=== PATIENT | male | born 1950 | race Caucasian/White ===

== ENCOUNTER 2016-10-21 14:24 | Emergency (ER) | payer MEDICAID ==
[~2016-10-21] VITALS: Ht 180.3 cm; Wt 112.0 kg
[~2016-10-21 14:24] MED LIST: LORA-475 PO; OMEP20CA2 PO; PROZ20CA11 PO
[2016-10-21 14:31] VITALS: BP 136/92; PULSE 88; RESP 16; TEMP 97.8; O2SAT 92
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
[2016-11-24] MEDS ORDERED: OMEP40CA2 PO (10:51)
== END 2016-10-21 15:15 | disposition home or self-care (01) ==
LOC: PHEFT 14:24
DX: S99.911A Unspecified injury of right ankle, initial encounter (principal); I48.91 Unspecified atrial fibrillation; K21.9 Gastro-esophageal reflux disease without esophagitis; I10 Essential (primary) hypertension; M19.90 Unspecified osteoarthritis, unspecified site; V18.4XXA Pedal cycle driver injured in noncollision transport accident in traffic accident, initial encounter
CPT/HCPCS: 73610; 99283

== ENCOUNTER 2016-11-06 14:31 | Emergency (ER) | payer MEDICAID ==
[~2016-11-06] VITALS: Ht 180.3 cm; Wt 110.8 kg
[~2016-11-06 14:31] MED LIST changes: -OMEP20CA2 PO
[2016-11-06 14:52] VITALS: PULSE 88; RESP 16; TEMP 98.3; O2SAT 93
[2016-11-06 15:39] LABS: CHLORIDE 101 MEQ/L (98-107); POTASSIUM 4.3 MEQ/L (3.5-5.1); SODIUM (NA) 135 MEQ/L (136-145)
--- NOTE | 2016-11-06 15:41 | PD ---
HPI Chief Complaint: GI Complaint Time Seen by Provider: 14:55 Travel History International Travel<30 days: No Contact w/Intl Traveler<30days: No Traveled to known affect area: No History of Present Illness HPI This is a 66-year-old male who presents to the emergency department with an episode of rectal bleeding yesterday. He said he went to the toilet and wiped and he had bright red blood on his toilet paper. There is no blood mixed in his stool and he denies any dark stools. He denies any lightheadedness, dizziness or fatigue. He says he's had 2 bowel movements since then which have been normal. He denies any abdominal pain. He has an uncle who had colon cancer. He has never had a colonoscopy because he is afraid to be put to sleep. PFSH Past Medical History Hx Anticoagulant Therapy: No Arthritis: Yes Atrial Fibrillation: Yes Anxiety: Yes (PANIC ATTACKS) Depression: Yes Diabetes: No Diminished Hearing: Yes (RIGHT) GERD: Yes Headaches: Yes Hypertension: Yes Neurologic: Yes (CHRONIC NECK PAIN) Psychiatric: Yes (PANIC ATTACKS) Immunizations Current: Yes Past Surgical History Abdominal Surgery: Yes (HERNIA REPAIR left groin) Social History Alcohol Use: No Tobacco Use: No Substance Use: No Allergies-Medications (Allergen,Severity, Reaction): Coded Allergies: Penicillin (Verified Allergy, Unknown, UNKNOWN, 11/06/16) Reported Meds & Prescriptions Reported Meds & Active Scripts Active Reported Ativan (Lorazepam) 2 Mg Tab 2 Mg PO HS PRN Prozac (Fluoxetine HCl) 20 Mg Cap 20 Mg PO DAILY Review of Systems Except as stated in HPI: all other systems reviewed are Neg Physical Exam Narrative GENERAL:Well appearing, no acute distress SKIN: Focused skin assessment warm and dry. HEAD: Atraumatic. Normocephalic. EYES: Pupils equal and round. No injection or drainage. ENT: Moist mucous membranes NECK: Trachea midline. CARDIOVASCULAR: Regular rate and rhythm. No murmur appreciated. RESPIRATORY: Clear to auscultation. Breath sounds equal bilaterally. GASTROINTESTINAL: Abdomen soft, non-tender, nondistended. No evident hemorrhoids. No grossly bloody stool MUSCULOSKELETAL: No obvious deformities. NEUROLOGICAL: Awake and alert. No obvious cranial nerve deficits. Moving all extremities. PSYCHIATRIC: Appropriate mood and affect; insight and judgment normal. Data Data Last Documented VS Vital Signs Date Time Temp Pulse Resp B/P Pulse Ox O2 Delivery O2 Flow Rate FiO2 11/06/16 14:52 98.3 88 16 93 Orders Complete Blood Count With Diff (11/06/16 15:08) Comprehensive Metabolic Panel (11/06/16 15:08) Labs Laboratory Tests Test 11/06/16 15:18 White Blood Count 7.2 TH/MM3 Red Blood Count 5.13 MIL/MM3 Hemoglobin 15.6 GM/DL Hematocrit 45.9 % Mean Corpuscular Volume 89.5 FL Mean Corpuscular Hemoglobin 30.4 PG Mean Corpuscular Hemoglobin 33.9 % Concent Red Cell Distribution Width 12.7 % Platelet Count 215 TH/MM3 Mean Platelet Volume 9.8 FL Neutrophils (%) (Auto) 52.3 % Lymphocytes (%) (Auto) 30.7 % Monocytes (%) (Auto) 12.4 % Eosinophils (%) (Auto) 2.4 % Basophils (%) (Auto) 2.2 % Neutrophils # (Auto) 3.7 TH/MM3 Lymphocytes # (Auto) 2.2 TH/MM3 Monocytes # (Auto) 0.9 TH/MM3 Eosinophils # (Auto) 0.2 TH/MM3 Basophils # (Auto) 0.2 TH/MM3 CBC Comment DIFF FINAL Differential Comment Sodium Level 135 MEQ/L Potassium Level 4.3 MEQ/L Chloride Level 101 MEQ/L Carbon Dioxide Level 28.6 MEQ/L Anion Gap 5 MEQ/L Blood Urea Nitrogen 11 MG/DL Creatinine 0.96 MG/DL Estimat Glomerular Filtration 79 ML/MIN Rate Random Glucose 91 MG/DL Calcium Level 8.2 MG/DL Total Bilirubin 0.4 MG/DL Aspartate Amino Transf 43 U/L (AST/SGOT) Alanine Aminotransferase 43 U/L (ALT/SGPT) Alkaline Phosphatase 79 U/L Total Protein 7.4 GM/DL Albumin 3.4 GM/DL [facility] Medical Decision Making Medical Screen Exam Complete: Yes Emergency Medical Condition: Yes Differential Diagnosis External hemorrhoids, internal hemorrhoids, anal fissure, colon cancer, colitis Narrative Course This is a 66-year-old male who presents to the emergency department with an episode of bright red blood per rectum yesterday. He was placed on a monitor and an IV was established. Labs are obtained which were reassuring. Hemoccult did demonstrate Hemoccult-positive stool. I don't think he necessarily requires admission for colonoscopy but he does require urgent follow-up with gastroenterology. I explained this to him and he expressed understanding. He has a primary care physician who is following him for this. Diagnosis Primary Impression: Bright red blood per rectum Referrals: [facility] Patient Instructions: General Instructions Additional Instructions: If you develop lightheadedness, dizziness, increasing blood in your stools or abdominal pain return to the emergency department. It is very important that you follow-up with a padding machine operator as soon as possible for evaluation of your bleeding as you could have cancer. Med/Other Pt SpecificInfo: No Change to Meds Disposition: 01 DISCHARGE HOME Condition: Stable Jeanie Bland MD Nov 06, 2016 15:41
[2016-11-06 15:42] LABS: ANION GAP 5 MEQ/L (5-15); BICARBONATE 28.6 MEQ/L (21.0-32.0); BLOOD UREA NITROGEN 11 MG/DL (7-18)
[2016-11-06 15:45] LABS: ALT (GPT) 43 U/L (12-78)
[2016-11-06 15:46] LABS: AST (GOT) 43 U/L (15-37); GLOMERULAR FILTRATION RATE 79 ML/MIN (>89)
[2016-11-06 15:47] LABS: TOTAL BILIRUBIN ADULT 0.4 MG/DL (0.2-1.0)
[2016-11-06 15:48] LABS: ALKALINE PHOSPHATASE 79 U/L (45-117)
[2016-11-06 16:03] LABS: AUTOMATED NEUTROPHIL # 3.7 TH/MM3 (1.8-7.7); BASOPHIL # 0.2 TH/MM3 (0-0.2); BASOPHIL % 2.2 % (0.0-2.0); EOSINOPHIL # 0.2 TH/MM3 (0-0.4); EOSINOPHIL % 2.4 % (0.0-4.0); HEMATOCRIT 45.9 % (39.0-51.0); HEMO FLAGS DIFF FINAL; LYMPH % 30.7 % (9.0-44.0); LYMPHOCYTE # 2.2 TH/MM3 (1.0-4.8); MEAN CELL VOLUME 89.5 FL (80.0-100.0); MEAN CORPUSCULAR HEMOGLOBIN 30.4 PG (27.0-34.0); MEAN CORPUSCULAR HGB CONC 33.9 % (32.0-36.0); MONO % 12.4 % (0.0-8.0); NEUT % 52.3 % (16.0-70.0); PLATELET COUNT 215 TH/MM3 (150-450); RED BLOOD COUNT 5.13 MIL/MM3 (4.50-5.90); RED CELL DISTRIBUTION WIDTH 12.7 % (11.6-17.2); WHITE BLOOD COUNT 7.2 TH/MM3 (4.0-11.0)
[2016-11-24] MEDS ORDERED: OMEP40CA2 PO (10:51)
== END 2016-11-06 16:22 | disposition home or self-care (01) ==
LOC: PHED 14:31
DX: K62.5 Hemorrhage of anus and rectum (principal); I48.91 Unspecified atrial fibrillation; I10 Essential (primary) hypertension
CPT/HCPCS: 80053; 85025; 99283

== ENCOUNTER 2016-11-26 19:43 | Emergency (ER) | payer MEDICAID ==
[~2016-11-26] VITALS: Ht 180.3 cm; Wt 111.1 kg
[~2016-11-26 19:43] MED LIST changes: +OMEP40CA2 PO
[2016-11-26 19:54] VITALS: BP 139/89; PULSE 78; RESP 14; TEMP 98.4; O2SAT 95
[2016-11-26] MEDS ORDERED: TETANUS/DIPHTHERIA TOXOID ADULT 0.5 ML VIAL IM ONE (20:45)
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
== END 2016-11-26 21:16 | disposition home or self-care (01) ==
LOC: PHED 19:43 → PHEFT 21:16
DX: S80.811A Abrasion, right lower leg, initial encounter (principal); I10 Essential (primary) hypertension; H91.91 Unspecified hearing loss, right ear; Z23 Encounter for immunization; Z87.39 Personal history of other diseases of the musculoskeletal system and connective tissue; Z86.79 Personal history of other diseases of the circulatory system; Z86.59 Personal history of other mental and behavioral disorders; Z87.19 Personal history of other diseases of the digestive system; X58.XXXA Exposure to other specified factors, initial encounter
CPT/HCPCS: 90471; 90714

== ENCOUNTER 2017-04-10 11:53 | Emergency (ER) | payer MEDICAID, MEDICARE ==
[~2017-04-10] VITALS: Ht 182.9 cm; Wt 107.1 kg
[2017-04-10 12:01] VITALS: BP 136/90; PULSE 89; RESP 16; TEMP 98.9; O2SAT 95
[2017-04-10] MEDS ORDERED: METO25TA6 PO (12:51)
--- NOTE | 2017-04-10 12:52 | PD ---
HPI Chief Complaint: GI Complaint Time Seen by Provider: 12:27 Travel History International Travel<30 days: No Contact w/Intl Traveler<30days: No Traveled to known affect area: No History of Present Illness HPI This 67-year-old male says he been having pain in his rectum for several weeks. He says the pain is fairly constant. He is concerned that he might have hemorrhoids. He had a left inguinal hernia repaired by Dr. Valente jade on January. He says he been having pain in his rectum. He has noted some change in the caliber of his stool. He has had some blood in his stool also. Patient does not recall this but on November 06 of this year he was evaluated in the ER blood per rectum. She was encouraged to go for colonoscopy. He had an appointment with Dr. Gill, but apparently they did not get along and colonoscopy was not done. He has continued to have pain. He also gets some crampy left lower quadrant pain at times and he has some crampy pain throughout his abdomen. PFSH Past Medical History Hx Anticoagulant Therapy: No Arthritis: Yes Atrial Fibrillation: Yes Anxiety: Yes (PANIC ATTACKS) Depression: Yes Diabetes: No Diminished Hearing: Yes (RIGHT) GERD: Yes Headaches: Yes Hypertension: Yes Neurologic: Yes (CHRONIC NECK PAIN) Psychiatric: Yes (PANIC ATTACKS) Immunizations Current: Yes Past Surgical History Abdominal Surgery: Yes (HERNIA REPAIR left groin) Social History Alcohol Use: No Tobacco Use: No Substance Use: No Allergies-Medications (Allergen,Severity, Reaction): Coded Allergies: penicillin G (Unverified Allergy, Unknown, UNKNOWN, 04/10/17) Reported Meds & Prescriptions Reported Meds & Active Scripts Active Omeprazole 40 Mg Cap 40 Mg PO DAILY Reported Metoprolol Succinate ER 24 HR (Metoprolol Succinate) 25 Mg Tab 25 Mg PO DAILY Ativan (Lorazepam) 2 Mg Tab 2 Mg PO HS PRN Prozac (Fluoxetine HCl) 20 Mg Cap 20 Mg PO DAILY Review of Systems General / Constitutional: No: Fever, Chills Eyes: No: Diploplia, Blurred Vision HENT: No: Headaches, Vertigo Respiratory: No: Cough, Shortness of Breath Gastrointestinal: Positive: Abdominal Pain, No: Nausea, Vomiting, Constipation Genitourinary: No: Urgency, Frequency Musculoskeletal: No: Myalgias, Arthralgias Skin: No Rash Neurologic: No: Weakness, Dizziness Hematologic/Lymphatic: No: Easy Bruising Physical Exam Narrative GENERAL: Well-developed male SKIN: Focused skin assessment warm/dry. HEAD: Atraumatic. Normocephalic. EYES: Pupils equal and round. No scleral icterus. No injection or drainage. ENT: No nasal bleeding or discharge. Mucous membranes pink and moist. NECK: Trachea midline. No JVD. CARDIOVASCULAR: Regular rate and rhythm. No murmur appreciated. RESPIRATORY: No accessory muscle use. Clear to auscultation. Breath sounds equal bilaterally. GASTROINTESTINAL: Abdomen soft, non-tender, nondistended. Hepatic and splenic margins not palpable. No hernias are palpable. Bowel sounds are active. On rectal exam there are no masses felt. Stool is brown and guaiac positive MUSCULOSKELETAL: No obvious deformities. No clubbing. No cyanosis. No edema. NEUROLOGICAL: Awake and alert. No obvious cranial nerve deficits. Motor grossly within normal limits. Normal speech. PSYCHIATRIC: Appropriate mood and affect; insight and judgment normal. Data Data Last Documented VS Vital Signs Date Time Temp Pulse Resp B/P (MAP) Pulse Ox O2 Delivery O2 Flow Rate FiO2 04/10/17 13:59 81 16 149/72 (97) 97 Room Air 04/10/17 12:01 98.9 Orders Orders Complete Blood Count With Diff (04/10/17 12:47) Comprehensive Metabolic Panel (04/10/17 12:47) Ct Abd/Pel W/O Iv Contrast (04/10/17 12:57) Labs Laboratory Tests Test 04/10/17 13:00 White Blood Count 5.6 TH/MM3 Red Blood Count 5.12 MIL/MM3 Hemoglobin 15.1 GM/DL Hematocrit 45.6 % Mean Corpuscular Volume 89.1 FL Mean Corpuscular Hemoglobin 29.5 PG Mean Corpuscular Hemoglobin Concent 33.2 % Red Cell Distribution Width 13.0 % Platelet Count 223 TH/MM3 Mean Platelet Volume 8.8 FL Neutrophils (%) (Auto) 46.9 % Lymphocytes (%) (Auto) 35.0 % Monocytes (%) (Auto) 13.4 % Eosinophils (%) (Auto) 3.8 % Basophils (%) (Auto) 0.9 % Neutrophils # (Auto) 2.6 TH/MM3 Lymphocytes # (Auto) 2.0 TH/MM3 Monocytes # (Auto) 0.7 TH/MM3 Eosinophils # (Auto) 0.2 TH/MM3 Basophils # (Auto) 0.1 TH/MM3 CBC Comment DIFF FINAL Differential Comment Blood Urea Nitrogen 11 MG/DL Creatinine 0.86 MG/DL Random Glucose 102 MG/DL Total Protein 7.3 GM/DL Albumin 3.4 GM/DL Calcium Level 8.4 MG/DL Alkaline Phosphatase 78 U/L Aspartate Amino Transf (AST/SGOT) 35 U/L Alanine Aminotransferase (ALT/SGPT) 35 U/L Total Bilirubin 0.3 MG/DL Sodium Level 134 MEQ/L Potassium Level 4.1 MEQ/L Chloride Level 99 MEQ/L Carbon Dioxide Level 29.4 MEQ/L Anion Gap 6 MEQ/L Estimat Glomerular Filtration Rate 89 ML/MIN MDM Medical Decision Making Medical Screen Exam Complete: Yes Emergency Medical Condition: Yes Medical Record Reviewed: Yes Differential Diagnosis Differential includes hemorrhoids, rectal or colon cancer, anal fissure Narrative Course Digital exam is negative for pathology. I told the patient that he needs to have a colonoscopy done to determine the source of pain and bleeding. He had gone to Dr. Gill but never had a colonoscopy done. He is having other abdominal pain and I have ordered a CT scan to assess for etiologies of this pain. My plan was to do a CT scan with contrast but the patient refuses to take the IV contrast. He says he has a severe anxiety disorder and the flushed feeling would be very unpleasant for him. I have explained to him that the scan without contrast may not show things that would be apparent on the scan with contrast and he understands this. CT scan has been done. There is an area of consent from thickening; at the level of the rectosigmoid junction concerning for malignancy. Colonoscopy is warranted. Patient now advises me that he is set up with Dr. Dawkins for sigmoidoscopy on March 25. Diagnosis Primary Impression: Rectal bleeding Additional Impression: possible colon cancer Disposition: DISCHARGE HOME Condition: Stable Juan Leger MD Apr 10, 2017 12:52
[2017-04-10 13:09] LABS: AUTOMATED NEUTROPHIL # 2.6 TH/MM3 (1.8-7.7); BASOPHIL # 0.1 TH/MM3 (0-0.2); BASOPHIL % 0.9 % (0.0-2.0); EOSINOPHIL # 0.2 TH/MM3 (0-0.4); EOSINOPHIL % 3.8 % (0.0-4.0); HEMATOCRIT 45.6 % (39.0-51.0); HEMO FLAGS DIFF FINAL; MEAN CELL VOLUME 89.1 FL (80.0-100.0); MEAN CORPUSCULAR HEMOGLOBIN 29.5 PG (27.0-34.0); MEAN CORPUSCULAR HGB CONC 33.2 % (32.0-36.0); MONO % 13.4 % (0.0-8.0); NEUT % 46.9 % (16.0-70.0); PLATELET COUNT 223 TH/MM3 (150-450); RED BLOOD COUNT 5.12 MIL/MM3 (4.50-5.90); WHITE BLOOD COUNT 5.6 TH/MM3 (4.0-11.0)
[2017-04-10 13:19] LABS: CHLORIDE 99 MEQ/L (98-107); POTASSIUM 4.1 MEQ/L (3.5-5.1); SODIUM (NA) 134 MEQ/L (136-145)
[2017-04-10 13:23] LABS: ANION GAP 6 MEQ/L (5-15); BICARBONATE 29.4 MEQ/L (21.0-32.0); BLOOD UREA NITROGEN 11 MG/DL (7-18)
[2017-04-10 13:26] LABS: ALT (GPT) 35 U/L (12-78); AST (GOT) 35 U/L (15-37); GLOMERULAR FILTRATION RATE 89 ML/MIN (>89)
[2017-04-10 13:28] LABS: TOTAL BILIRUBIN ADULT 0.3 MG/DL (0.2-1.0)
[2017-04-10 13:29] LABS: ALKALINE PHOSPHATASE 78 U/L (45-117)
[2017-04-10 13:59] VITALS: BP 149/72; PULSE 81; RESP 16; O2SAT 97
--- NOTE | 2017-04-10 14:10 | RADRPT ---
EXAM DATE/TIME: 04/10/2017 13:12 [facility] COMPARISON: CT CERVICAL SPINE W/O CONTRAST, March 31, 2014, 22:04. INDICATIONS : Rectal pain. Blood in stool. ORAL CONTRAST: No oral contrast ingested. RADIATION DOSE: 20.93 CTDIvol (mGy) MEDICAL HISTORY : Hypertension. Gastroesophageal reflux disease. SURGICAL HISTORY : Inguinal hernia repair. ENCOUNTER: Initial ACUITY: 1 day PAIN SCALE: 5/10 LOCATION: pelvis TECHNIQUE: Volumetric scanning of the abdomen and pelvis was performed. Using automated exposure control and ad justment of the mA and/or kV according to patient size, radiation dose was kept as low as reasonably achievable to obtain optimal diagnostic quality images. DICOM format image data is available electro nically for review and comparison. FINDINGS: The limited portion of the lung base visualized is clear. There is elevation of the left hemidiaphrag m. Examination of the liver demonstrates 2 low attenuation lesions within the liver. Both within the rig ht lobe. The largest measures 6 mm. They're indeterminate by noncontrast imaging. The spleen, pancreas, adrenal glands and kidneys are intact. The abdominal aorta is normal in caliber. There is no free air or free fluid. There is no retroperito gertrude lymphadenopathy. Imaging through the pelvis demonstrates a focal area of concentric narrowing and thickening of the co daren at the rectosigmoid junction. This would be concerning for malignancy. Colonoscopy is warranted f or further assessment. No iliac or inguinal adenopathy is present. No free fluid is seen. There are degenerative changes throughout the lumbar spine. CONCLUSION: 1. There is an area of concentric thickening within the colon at the level the rectosigmoid junction concerning for malignancy. Colonoscopy is warranted for further assessment. 2. Elevation of the left hemidiaphragm. Paramjit Coello MD on April 10, 2017 at 13:24 Board Certified Radiologist. This report was verified electronically.
== END 2017-04-10 15:03 | disposition home or self-care (01) ==
LOC: PHED 11:53
DX: K62.5 Hemorrhage of anus and rectum (principal); K62.89 Other specified diseases of anus and rectum; R10.32 Left lower quadrant pain; I10 Essential (primary) hypertension; H91.91 Unspecified hearing loss, right ear; Z87.39 Personal history of other diseases of the musculoskeletal system and connective tissue; Z86.79 Personal history of other diseases of the circulatory system; Z86.59 Personal history of other mental and behavioral disorders; Z86.69 Personal history of other diseases of the nervous system and sense organs
CPT/HCPCS: 74176; 80053; 85025; 99284

== ENCOUNTER 2017-06-01 08:00 | Inpatient (IN) | payer MEDICARE, MEDICAID ==
[~2017-06-01] VITALS: Ht 180.3 cm; Wt 107.1 kg
[~2017-06-01 08:00] MED LIST changes: +METO1TAB42 PO
[2017-07-24] MEDS ORDERED: LIDOCAINE HCL 1% PF 5 ML SYRINGE OTHER ONE (12:00)
[2017-07-24] MEDS ORDERED: GLYCOPYRROLATE 1 MG/5 ML SYRINGE IV PUSH ONE (12:00)
[2017-07-24] MEDS ORDERED: DEXAMETHASONE SOD PHOS 4 MG/ML VIAL IV ONE (12:00)
[2017-07-24] MEDS ORDERED: PROPOFOL 200 MG/20 ML AMP IV ONE (12:00)
[2017-07-24] MEDS ORDERED: LACTATED RINGER'S 1000 ML INJ 2,000 ML IV ONE (12:00)
[2017-07-24] MEDS ORDERED: PHENYLEPH/NS 1000 MCG/10 ML SYR IV ONE (12:00)
[2017-07-24] MEDS ORDERED: NEOSTIGMINE 5 MG/5 ML SYRINGE IV PUSH ONE (12:00)
[2017-07-24] MEDS ORDERED: ONDANSETRON HCL 4 MG/2 ML VIAL IV ONE (12:00)
[2017-07-24] MEDS ORDERED: ROCURONIUM INJ 50 MG/5 ML SYRINGE IV PUSH ONE (12:00)
[2017-07-24] MEDS ORDERED: ePHEDrine/NS 25 MG/5 ML SYRINGE IV ONE (12:00)
[2017-07-24] MEDS ORDERED: POVIDONE IODINE 5% (ANTISEPSIS KIT) 4 APPLICATIONS EACH NARE PRN (12:30)
[2017-07-24] MEDS ORDERED: METOPROLOL TARTRATE 25 MG TAB PO PRN (12:30)
[2017-07-24] MEDS ORDERED: INSULIN HUMAN REGULAR 1,000 UNITS/10 ML VIAL SQ PRN (12:30)
[2017-07-24] MEDS ORDERED: SODIUM CHLORID 0.9% 500 ML IV PRN (12:30)
[2017-07-24] MEDS ORDERED: ALVIMOPAN 12 MG CAPSULE - On Call PO SCH (12:30)
[2017-07-24] MEDS ORDERED: LACTATED RINGER'S 1000 ML IV PRN (12:30)
[2017-07-24] MEDS ORDERED: CHLORHEXIDINE GLUCONATE 2 % 1 PACK (2 CLOTHS) TOPICAL PRN (12:30)
[2017-07-24] MEDS ORDERED: VANCOMYCIN 1000 MG/NS 250 ML ON-CALL IV SCH ×2 (12:45)
[2017-07-24] MEDS ORDERED: METRONIDAZOLE 500 MG/100 ML ISONTONIC SOLN IV SCH (12:45)
[2017-07-24] MEDS ORDERED: ACETAMINOPHEN 1000 MG/100 ML 100 ML IV ONE (13:17)
[2017-07-24] MEDS ORDERED: MIDAZOLAM HCL 2 MG/2 ML VIAL ONE (13:17)
[2017-07-24] MEDS ORDERED: HYDROmorphone HCL PF 2 MG/ML VIAL ONE (13:17)
[2017-07-24 13:48] LABS: AUTOMATED NEUTROPHIL # 3.8 TH/MM3 (1.8-7.7); BASOPHIL % 0.7 % (0.0-2.0); EOSINOPHIL # 0.1 TH/MM3 (0-0.4); EOSINOPHIL % 1.7 % (0.0-4.0); HEMOGLOBIN 15.1 GM/DL (13.0-17.0); LYMPHOCYTE # 1.7 TH/MM3 (1.0-4.8); MEAN CORPUSCULAR HEMOGLOBIN 30.6 PG (27.0-34.0); MEAN CORPUSCULAR HGB CONC 34.4 % (32.0-36.0); MEAN PLATELET VOLUME 9.2 FL (7.0-11.0); MONO % 11.7 % (0.0-8.0); MONOCYTE # 0.7 TH/MM3 (0-0.9); NEUT % 59.9 % (16.0-70.0); PLATELET COUNT 235 TH/MM3 (150-450); RED BLOOD COUNT 4.94 MIL/MM3 (4.50-5.90); RED CELL DISTRIBUTION WIDTH 13.8 % (11.6-17.2); WHITE BLOOD COUNT 6.3 TH/MM3 (4.0-11.0)
[2017-07-24 14:06] LABS: BICARBONATE 29.2 MEQ/L (21.0-32.0); CALCIUM 8.8 MG/DL (8.5-10.1); CREATININE 0.8 MG/DL (0.60-1.30)
[2017-07-24] MEDS ORDERED: BUPIVACAINE LIPOSOME PF 1.3% 20 ML VIAL ONE (14:51)
--- NOTE | 2017-07-24 16:14 | EKG ---
Date Performed: 07/24/2017 Time Performed: 12:34:35 PTAGE: 67 years EKG: Sinus rhythm BORDERLINE ECG PREVIOUS TRACING : 12/01/2014 12.57 Compared to prior tracing no significant change DOCTOR: Abel Dwyer Interpretating Date/Time 07/24/2017 16:13:48
[2017-07-24] MEDS ORDERED: MORPHINE SULFATE 2 MG/ML INJ IM PRN (17:15)
[2017-07-24] MEDS ORDERED: diphenhydrAMINE HCL 25 MG CAP PO PRN (17:15)
[2017-07-24] MEDS ORDERED: NALOXONE HCL 0.4 MG/ML AMP IV PUSH PRN (17:15)
[2017-07-24] MEDS ORDERED: ONDANSETRON HCL 4 MG/2 ML VIAL IV PUSH PRN (17:15)
[2017-07-24] MEDS ORDERED: Post-op Orders (for Pharmacy) XX ONE (17:15)
[2017-07-24] MEDS ORDERED: KETOROLAC TROMETHAMINE 30 MG/ML (IVP) VIAL IVP PRN (17:15)
[2017-07-24] MEDS ORDERED: BUPIVACAINE/EPINEPHRINE 0.25% PF 10 ML VIAL INFIL ONE (17:17)
--- NOTE | 2017-07-24 17:24 | HHI.PR ---
Immediate Post Op Note Procedure Date: Jul 24, 2017 Pre Op Diagnosis: sigmoid colon cancer Post Op Diagnosis: same Surgeon: Valente Naylor Engineering Operator(s): Hardik Del Toro Procedure: laparoscopic assisted low anterior resection Complications: none Specimen(s) removed: sigmoid colon cancer Estimated blood loss: 100 Anesthesia: General Drains: None Patient to: PACU Patient Condition: Good Valente Naylor MD Jul 24, 2017 17:24
[2017-07-24] MEDS ORDERED: DO NOT ADM ANY ANTICOAGULANT DRUGS PRN (17:36)
--- NOTE | 2017-07-24 19:32 | MP ---
cc: CARRIE AREVALO M.D., MARK W. M.D. DATE OF SURGERY 07/24/2017 PREOPERATIVE DIAGNOSIS Low sigmoid colon cancer. POSTOPERATIVE DIAGNOSIS Low sigmoid colon cancer. PROCEDURE Rigid sigmoidoscopy. SURGEON Dr. Carrie Arevalo CONSTRUCTION EQUIPMENT MECHANIC HELPER SURGEON Dr. Valente Naylor ANESTHESIA General INDICATION A 67-year-old gentleman with a low sigmoid cancer. Patient of Dr. Valente Naylor who is undergoing laparoscopic assisted sigmoid resection. Sigmoidoscopy was performed to prepare for and evaluate the anastomosis. INTRAOPERATIVE FINDINGS Successful low anterior resection with low anastomosis with no evidence of leak. Staple line intact without significant bleeding. DESCRIPTION OF PROCEDURE IN DETAIL During the operation please refer to Dr. Valente Naylor's operative report for details. After sigmoid resection preparation for the operation a digital rectal exam was performed. The end of the rigid sigmoidoscope was placed into the anus into the distal rectum. Under direct visualization gradual advancement to the staple line was performed. No mucosal abnormalities were identified and the staple line appeared intact. There was minimal blood within the rectum. The rigid sigmoidoscope was removed. A functional end-to-end anastomosis was preformed using the EEA stapler. Again, please refer to Dr. Valente Naylor's dictation for details. Following anastomosis the rigid sigmoidoscope was returned into the distal rectum through the anus and under direct visualization insufflation was performed while saline was in the pelvis. The colon proximal to the anastomosis was closed with Dr. Naylor's fingers and anastomosis tested for leak. There was no evidence of leak. The staple line was able be visualized about three-quarters of it was intact. There was minimal ooze. There had been about 10 mL of mucusy bloody fluid following the anastomosis which had been removed from the distal rectum. The distal rectum was desufflated by opening the end of the sigmoidoscope and using suction and the sigmoidoscope was withdrawn. There was no evidence of complications associated with rigid sigmoidoscopy. This portion of the procedure was completed successfully. MD ELHAM Brewster/MYRIAM /4:44 PM /6:56 PM
[2017-07-24] MEDS: LORazepam 2 MG TAB PO PRN (19:53)
[2017-07-24] MEDS: D5-NS + KCL 20 MEQ INJ 1,000 ML IV SCH (19:58)
--- NOTE | 2017-07-24 19:58 | MP ---
cc: LAURIE ALVARADO DATE OF SURGERY: 07/24/2017 PREOPERATIVE DIAGNOSIS: Low sigmoid near obstructing colon cancer. POSTOPERATIVE DIAGNOSIS: Low sigmoid near obstructing colon cancer. PROCEDURE PERFORMED: Laparoscopic assisted low anterior resection. SURGEON Laurie Alvarado MD. SURFACE MINER Hardik Del Toro MD. ANESTHESIA General endotracheal anesthesia COMPLICATIONS None. ESTIMATED BLOOD LOSS About 100 cc. IV FLUIDS Two liters lactated Ringer's. INDICATIONS FOR PROCEDURE Mr. Venegas is a pleasant 67-year-old gentleman with severe anxiety disorder who had a low sigmoid colon cancer identified due to changes in stool and rectal bleeding. He saw Dr. Paulo Monroy as well as myself on multiple occasions. The patient was fearful of anesthetic and, therefore, did not immediately agree to surgery. After extensive consultation with Dr. Monroy and myself, as well as Dr. Frazier, by anesthesia, the patient was finally convinced to undergo general anesthesia to have his colon resection. The risks and benefits of the procedure was discussed with him in detail and he was agreeable. DETAILS OF PROCEDURE The patient was identified, brought to the operating room table, placed supine on the operating room table. After adequate general endotracheal anesthesia was achieved, the abdomen was prepped and draped in standard surgical fashion. 0.25% Marcaine was injected in the skin and subcutaneous tissue and the infraumbilical region. A vertical incision was made approximately 8 cm in the infraumbilical region. Dissection was carried down through subcutaneous tissue, down to the anterior abdominal wall fascia. The anterior abdominal wall fascia was then incised sharply. Rectus muscles were then carefully dissected out, identifying the midline. Once the midline was identified, the rectus muscles were gently spread in order to visualize the posterior fascia and peritoneum. This was grasped, elevated and divided with the electrocautery Bovie. The abdominal cavity was then entered. The GelPort was then inserted and the abdomen was insufflated with 15 mmHg using CO2 gas. Next a 5 mm trocar was placed in the right lower quadrant. The patient was noted to have some adhesions in the right lower quadrant and, therefore, two 5 millimeter trocars were placed through the GelPort. The adhesions were taken down with the harmonic scalpel. Once this was freed up completely, attention was directed to the sigmoid colon. The patient was noted to have some adhesions in the sigmoid colon, the anterior abdominal wall, and lateral pelvic sidewall. These were carefully taken down with the harmonic scalpel. Once the colon was freed up, attention was directed to the descending colon where it was slightly mobilized off the abdominal wall, along the white line of Toldt using the harmonic scalpel. Once the colon was freed up completely, attention was now directed to the dissection. The lesion was identified in the sigmoid area in the lower area just above the peritoneal reflection. We, therefore, selected a site about 6-7 cm proximal to this. The mesentery was divided with the harmonic scalpel. Next the laparoscopic portion of the procedure was discontinued. The GelPort was then used as the access point with the GelPort acting as the wound retractor. The sigmoid colon was brought up into the operative wound. It was divided with a 75 DEMETRI at the site that we had selected which was a significant distance from the apple core lesion in the sigmoid colon. Attention was now directed to the mesentery of the sigmoid colon. The mesentery was taken down with the harmonic scalpel. A fairly large sigmoid artery and vein were identified during dissection. These were oversewn with a 2-0 vicryl. Dissection then proceeded down to the peritoneal reflection. The peritoneal reflection was then taken down circumferentially again using the harmonic scalpel. The lesion was clearly identified and a generous margin of tissue was taken circumferentially around the lesion. Once we got several centimeters below the lesion, we used a contour semicircular stapler to fire on the upper rectum which was at least probably 4 to 5 cm away from the primary lesion. Once we did this the specimen was passed off and sent to pathology with a suture placed on the proximal portion of the colon. Bleeding points on the pelvis were controlled with the electrocautery Bovie. The left ureter was identified and protected during the dissection. Attention was now directed to the sigmoid colon. The patient had a very redundant long sigmoid colon. We did not have to mobilize it at all to get it down to the pelvis which it laid under no tension whatsoever and was still extremely redundant. Sterile towels were then brought up on the operative field and the colon staple line was removed out of the proximal sigmoid colon. Next, EEA sizes were brought up. An empty sponge stick was used to slightly stretch the colon which was seen to be in some spasm. A 25 EEA sizer barely fit in the colon. We gently attempted the 29, but it was under significant tension. We felt it was too large for this diameter of the colon. As stated, we were able to get the 25 in with some lube and gentle traction. The colon was tight around it, even after we advanced it several centimeters away from the end. We felt that the patient's colon would only accept a 25 EEA. Therefore, a 25 EEA stapler was opened. The pursestring suture of 2-0 Prolene was used in the sigmoid colon prior to placement of the EEA anvil. The EEA anvil was then placed and the pursestring suture pulled up. There was good coverage of the colon all the way around the base of the anvil. Several epiploic appendages and some mesenteric fat were taken down in order to have good colon visualization circumferentially around the EEA staple line. Now attention was directed to the rectum where Dr. Del Toro performed a rigid sigmoidoscopy. Dr. Del Toro identified the staple line at approximately 12 cm. From above, a site was selected on the anterior rectum for the anastomosis. The EEA was then inserted and the spike pushed through the colon. Once the orange base of the spike was seen, the sigmoid colon was placed down in the pelvis for the proper orientation. The sigmoid colon went down the pelvis with no problem with a large amount of redundant sigmoid colon. The EEA was then tightened down and fired. The EEA was then removed. Dr. Del Toro confirmed that two donuts with the proximal donut a little thin on one side, but otherwise intact circumferentially. Next the descending colon was held closed with a finger and the pelvis was filled with saline. Dr. Del Toro then insufflated the rectum. There is no evidence of air bubble coming from the staple line. The descending colon distended up nicely. Dr. Del Toro applied several firm puffs of air and again no leakage was noted. Dr. Del Toro did note some liquid stool coming from the proximal colon. At this point, it was felt the anastomosis was solid. The colon was then evacuated, using the suction device. Rigid sigmoidoscope was then withdrawn. Please see Dr. Del Toro's operative note for the rigid sigmoidoscopy. At this point, the colon was again inspected and it went down to the pelvis with no tension. It was redundant, and there was multiple epiploic appendages which were placed into the pelvis with the colon in order to cover over the anastomosis. The abdominal cavity was then rinsed out with warm saline solution. The effluent was noted to be clear. The omentum was then brought down and placed over the small bowel. Attention was now directed to closure. Closure was accomplished using a two-layer technique. First the peritoneum and posterior fascia was closed with a looped PDS from above and below. Next the subcutaneous tissue and rectus muscle was copiously irrigated with normal saline solution and injected with additional local anesthetic. The anterior abdominal wall fascia was then closed with a #1 loop PDS again from above and below. The subcutaneous fat was then copiously irrigated with normal saline solution and then closed with the skin stapling device. The 5 millimeter port site in the right lower quadrant was also closed with the skin stapling device. The patient tolerated the procedure well, was awake and extubated, and brought to recovery in stable condition. MD JAYCOB Perez/EDDI /5:27 PM /7:31 PM KENROY
[2017-07-24 20:00] VITALS: BP 141/86; PULSE 103; RESP 20; TEMP 96.8; O2SAT 93
[2017-07-25] VITALS (7 sets, daily range): BP systolic 108–172; BP diastolic 70–103; PULSE 90–153; RESP 18–22; TEMP 97.4–101.3; O2SAT 93–96
[2017-07-25] MEDS: D5-NS + KCL 20 MEQ INJ 1,000 ML IV SCH ×2 (01:16→10:25)
[2017-07-25] MEDS ORDERED: LORazepam 1 MG TAB PO PRN (07:30)
--- NOTE | 2017-07-25 07:52 | HHI.PR ---
Subjective Subjective Notes very anxious. worried about BP, low grade fever. can't sleep, can't urinate Objective Vitals/I&O Vital Signs Date Time Temp Pulse Resp B/P (MAP) Pulse Ox O2 Delivery O2 Flow Rate FiO2 07/25/17 06:16 100.8 150 22 145/76 (99) 93 07/24/17 18:45 Nasal Cannula 3 Labs Laboratory Tests Test 07/24/17 12:45 White Blood Count 6.3 Red Blood Count 4.94 Hemoglobin 15.1 Hematocrit 44.0 Mean Corpuscular Volume 89.0 Mean Corpuscular Hemoglobin 30.6 Mean Corpuscular Hemoglobin Concent 34.4 Red Cell Distribution Width 13.8 Platelet Count 235 Mean Platelet Volume 9.2 Neutrophils (%) (Auto) 59.9 Lymphocytes (%) (Auto) 26.0 Monocytes (%) (Auto) 11.7 Eosinophils (%) (Auto) 1.7 Basophils (%) (Auto) 0.7 Neutrophils # (Auto) 3.8 Lymphocytes # (Auto) 1.7 Monocytes # (Auto) 0.7 Eosinophils # (Auto) 0.1 Basophils # (Auto) 0.0 CBC Comment DIFF FINAL Differential Comment Blood Urea Nitrogen 8 Creatinine 0.80 Random Glucose 111 Calcium Level 8.8 Sodium Level 135 Potassium Level 3.7 Chloride Level 99 Carbon Dioxide Level 29.2 Anion Gap 7 Estimat Glomerular Filtration Rate 97 Cardiovascular: Regular Lungs: Clear Abdomen: Non-distended, Post-op tenderness, BS normal Wound Wound : Wound Location: Abdomen Appearance: Clean & Dry Dressing: Dry A/P Assessment and Plan POD 1 LAR/Colectomy will increase ativan and ask psych to assist with management replace garza OOB clear liquids. FU labs today Valente Naylor MD Jul 25, 2017 07:52
[2017-07-25] MEDS ORDERED: ACETAMINOPHEN 325 MG TAB PO PRN (08:00)
[2017-07-25] MEDS ORDERED: ENALAPRILAT 1.25 MG/ML VIAL IV PUSH PRN (08:00)
[2017-07-25] MEDS ORDERED: ALVIMOPAN 12 MG CAPSULE PO SCH (09:00)
[2017-07-25 09:19] LABS: HEMATOCRIT 40.2 % (39.0-51.0); HEMOGLOBIN 13.5 GM/DL (13.0-17.0); LYMPH % 3.2 % (9.0-44.0); LYMPHOCYTE # 0.4 TH/MM3 (1.0-4.8); MEAN CELL VOLUME 89.7 FL (80.0-100.0); MEAN CORPUSCULAR HEMOGLOBIN 30.2 PG (27.0-34.0); MEAN CORPUSCULAR HGB CONC 33.6 % (32.0-36.0); MEAN PLATELET VOLUME 8.8 FL (7.0-11.0); MONO % 6.8 % (0.0-8.0); MONOCYTE # 0.8 TH/MM3 (0-0.9); PLATELET COUNT 186 TH/MM3 (150-450); RED BLOOD COUNT 4.48 MIL/MM3 (4.50-5.90); RED CELL DISTRIBUTION WIDTH 13.7 % (11.6-17.2); WHITE BLOOD COUNT 12.2 TH/MM3 (4.0-11.0)
[2017-07-25] MEDS: FLUoxetine HCL 20 MG CAP PO SCH (09:37)
[2017-07-25] MEDS: METOPROLOL SUCCINATE 25 MG EXTENDED RELEASE TAB PO SCH (09:37)
[2017-07-25] MEDS: ALVIMOPAN 12 MG CAPSULE - Post-op dosing PO SCH ×2 (09:38→20:37)
[2017-07-25] MEDS: TAMSULOSIN HCL 0.4 MG CAP PO SCH ×2 (09:38→20:36)
[2017-07-25] MEDS: PANTOPRAZOLE SOD 40 MG DELAYED RELEASE TAB PO SCH (09:38)
[2017-07-25 09:47] LABS: BICARBONATE 28.5 MEQ/L (21.0-32.0); CREATININE 1.16 MG/DL (0.60-1.30)
[2017-07-25 11:04] LABS: BACTERIA, URINE RARE /hpf; BILIRUBIN, URINE NEG (NEG); BLOOD, URINE MOD (NEG); GLUCOSE,URINE TRACE mg/dL (NEG); HYALINE CAST, URINE 12 /lpf (RARE); KETONE, URINE TRACE mg/dL (NEG); MUCUS URINE FEW /lpf (OCC); NITRITE,URINE NEG (NEG); PH, URINE 6.5 (5.0-8.5); SQUAMOUS EPITHELIAL CELL URINE <1 /hpf (0-5); URINE COLOR YELLOW (YELLW/STRAW); URINE LEUKOCYTE ESTERASE MOD (NEG)
--- NOTE | 2017-07-25 13:42 | PD.PSY.CON ---
Provisional Diagnosis Admission Date Jul 24, 2017 at 11:52 [place] I. Generalized anxiety disorder [place] II. Deferred History of Present Illness Service Psychiatry Consult Requested By Surgical team Reason for Consult Anxiety Primary Care Physician Zane Burrows MD HPI The patient is a 67-year-old man, domiciled in [facility] [place], , unemployed, with psychiatric history of anxiety and depression, 1 previous psychiatric hospitalization, no previous suicidal attempt, he is on Ativan 2 mg twice a day and Prozac 20 mg prescribed by PCP, was hospitalized due POD 1 LAR/ Colectomy. She didn't has been consulted to psychiatry due to anxiety. Chart reviewed. On psychiatric evaluation patient is calm, cooperative, talkative. Patient reports that he has a long history of anxiety that has been well treated with psychotropic regimen mentioned above. But, the patient reports that since he is hospitalized, with feeling of isolation, very afraid to , sleeping poorly at night, he has been very anxious. He reported that he has been at the point of having a panic attack. He denies depressive symptoms, he denies anhedonia, he denies hopelessness, he denies hepatitis is, he denies suicidal and homicidal ideation, he denies visual and auditory hallucinations. Patient is fully oriented, motivated to continue medical treatment. Oriented 3 , no fluctuation of consciousness. He denies the use of alcohol and illicit drugs. Review of Systems Psychiatric: COMPLAINS OF: Anxiety Except as stated in HPI: all other systems reviewed are Neg Past Family Social History Coded Allergies: penicillin G (Unverified Allergy, Unknown, UNKNOWN, 07/24/17) Active Scripts Omeprazole (Omeprazole) 40 Mg Cap, 40 MG PO DAILY, #30 CAP 6 Refills Prov:Keely Gonzalez MD 11/24/16 Reported Medications Metoprolol Succinate ER 24 HR (Metoprolol Succinate ER 24 HR) 25 Mg Tab, 25 MG PO DAILY, #30 TAB 0 Refills 04/10/17 Lorazepam (Ativan) 2 Mg Tab, 2 MG PO HS Y for ANXIETY AND/OR AGITATION, TAB 0 Refills 06/21/16 Fluoxetine (Prozac) 20 Mg Cap, 20 MG PO DAILY for Depression Control, CAP 1 Refill 06/21/16 Current Medications Medications (Trade) Dose Ordered Sig/Fredi Route Start Time Stop Time Status Last Admin (Entereg) 12 mg BID PO 07/25/17 09:00 07/31/17 21:01 07/25/17 09:38 Potassium Chloride/Dextrose/ Sod Cl 1,000 ml @ 75 mls/hr [id number] IV 07/24/17 17:15 07/25/17 10:25 (Toradol Inj) 15 mg Q6H PRN IVP 07/24/17 17:15 07/29/17 17:14 07/25/17 01:01 (Percocet 5-325 Mg) 1 tab Q4H PRN PO 07/24/17 17:15 (Percocet 5-325 Mg) 2 tab Q4H PRN PO 07/24/17 17:15 (Zofran Inj) 4 mg Q4H PRN IV PUSH 07/24/17 17:15 (Benadryl) 25 mg Q6H PRN PO 07/24/17 17:15 (Lovenox Inj) 40 mg Q24H SQ 07/25/17 16:00 (Narcan Inj) 0.4 mg UNSCH PRN IV PUSH 07/24/17 17:15 (Morphine Inj) 4 mg Q1H PRN IM 07/24/17 17:15 07/25/17 05:24 (PROzac) 20 mg DAILY PO 07/25/17 09:00 07/25/17 09:37 (Ativan) 2 mg HS PRN PO 07/24/17 17:30 07/24/17 19:53 (Toprol Xl) 25 mg DAILY PO 07/25/17 09:00 07/25/17 09:37 (Protonix) 40 mg DAILY PO 07/25/17 09:00 07/25/17 09:38 Miscellaneous Information ALL NURSING DEPARTME... UNSCH PRN .XX 07/24/17 17:36 07/25/17 17:35 (Tylenol) 650 mg Q4H PRN PO 07/25/17 08:00 07/25/17 09:39 (Ativan) 2 mg Q4H PRN PO 07/25/17 08:00 (Flomax) 0.4 mg Q12HR PO 07/25/17 09:00 07/25/17 09:38 (Vasotec Inj) 1.25 mg Q6H PRN IV PUSH 07/25/17 08:00 Levofloxacin/ Dextrose 150 ml @ 100 mls/hr Q24H IV 07/25/17 13:45 UNV Family Psych History He denies family psychiatric history Social History The patient was born and raised in [place], his , lives alone in [facility], Patient's Strengths (min. 2) Verbal communication Physical Exam No EPS, no stiffness, no withdrawal symptoms, no psychomotor agitation or retardation Vital Signs Vital Signs Date Time Temp Pulse Resp B/P (MAP) Pulse Ox O2 Delivery O2 Flow Rate FiO2 07/25/17 12:00 99.4 128 18 112/71 (85) 94 07/24/17 18:45 Nasal Cannula 3 I/O 07/25/17 07/25/17 07/26/17 08:00 16:00 00:00 Intake Total 2080 ml Output Total 0 ml Balance 2080 ml Lab Results Test 07/25/17 08:45 07/25/17 10:16 White Blood Count 12.2 TH/MM3 Red Blood Count 4.48 MIL/MM3 Hemoglobin 13.5 GM/DL Hematocrit 40.2 % Mean Corpuscular Volume 89.7 FL Mean Corpuscular Hemoglobin 30.2 PG Mean Corpuscular Hemoglobin Concent 33.6 % Red Cell Distribution Width 13.7 % Platelet Count 186 TH/MM3 Mean Platelet Volume 8.8 FL Neutrophils (%) (Auto) 90.0 % Lymphocytes (%) (Auto) 3.2 % Monocytes (%) (Auto) 6.8 % Eosinophils (%) (Auto) 0.0 % Basophils (%) (Auto) 0.0 % Neutrophils # (Auto) 11.0 TH/MM3 Lymphocytes # (Auto) 0.4 TH/MM3 Monocytes # (Auto) 0.8 TH/MM3 Eosinophils # (Auto) 0.0 TH/MM3 Basophils # (Auto) 0.0 TH/MM3 CBC Comment DIFF FINAL Differential Comment Blood Urea Nitrogen 14 MG/DL Creatinine 1.16 MG/DL Random Glucose 90 MG/DL Calcium Level 8.0 MG/DL Sodium Level 134 MEQ/L Potassium Level 3.7 MEQ/L Chloride Level 99 MEQ/L Carbon Dioxide Level 28.5 MEQ/L Anion Gap 7 MEQ/L Estimat Glomerular Filtration Rate 63 ML/MIN Urine Color YELLOW Urine Turbidity HAZY Urine pH 6.5 Urine Specific [place] 1.020 Urine Protein TRACE mg/dL Urine Glucose (UA) TRACE mg/dL Urine Ketones TRACE mg/dL Urine Occult Blood MOD Urine Nitrite NEG Urine Bilirubin NEG Urine Urobilinogen LESS THAN 2.0 MG/DL Urine Leukocyte Esterase MOD Urine RBC /hpf Urine WBC 27 /hpf Urine Squamous Epithelial Cells <1 /hpf Urine Bacteria RARE /hpf Urine Hyaline Casts 12 /lpf Urine Mucus FEW /lpf Microscopic Urinalysis Comment CATH-CULTURE IND Date/Time Source Procedure Growth Status 07/25/17 10:16 Urine Catheterized Urine Urine Culture Pending Received Mental Status Examination Appearance: Appropriate Consciousness: Alert Orientation: x4 Motor Activity: Normal gait Speech: Unremarkable Language: Adequate Fund of Knowledge: Adequate Attention and Concentration: Adequate Memory: Unremarkable Mood: Appropriate Affect: Appropriate Thought Process & Associations: Intact Thought Content: Appropriate Hallucination Type: None Delusion Type: None Suicidal Ideation: No Suicidal Plan: No Suicidal Intention: No Homicidal Ideation: No Homicidal Plan: No Homicidal Intention: No Insight: Adequate Judgment: Adequate Assessment & Plan Problem List: (1) Anxiety ICD Codes: F41.9 - Anxiety Status: Acute Assessment & Plan: Psychiatric evaluation patient reports increased anxiety as a result of current medical situation, and increased insomnia. He has not been taking his outpatient medication for anxiety and insomnia, Prozac 20 mg and Ativan 2 mg twice a day. He denies depressive symptoms, he denies psychosis and jovon. He denies suicidal and homicidal ideation, he denies visual and auditory hallucinations. Okay restarting Prozac 20 mg, Ativan 2 mg twice a day. He does not meet criteria for involuntary psychiatric admission. Brief supportive psychotherapy, I will follow-up. Assessment & Plan Estimated LOS: Nithin Gamez MD Jul 25, 2017 13:42
[2017-07-25] MEDS: oxyCODONE/ACETAMINOPHEN 5 MG/325 MG TAB PO PRN ×3 (14:15→20:43)
[2017-07-25] MEDS: LEVOFLOXACIN 750 MG PREMIX INJ 150 ML IV SCH (15:36)
[2017-07-25] MEDS: ENOXAPARIN SODIUM 40 MG/0.4 ML SYRINGE SQ SCH (16:15)
[2017-07-26] VITALS: BP 114/71; PULSE 111; PULSE 112; RESP 18; TEMP 100.4; O2SAT 94
[2017-07-26] MEDS: D5-NS + KCL 20 MEQ INJ 1,000 ML IV SCH (00:16)
[2017-07-26] MEDS: oxyCODONE/ACETAMINOPHEN 5 MG/325 MG TAB PO PRN ×5 (00:18→21:35)
[2017-07-26] MEDS: LORazepam 2 MG TAB PO SCH ×2 (01:14→21:35)
[2017-07-26] MEDS: LORazepam 2 MG TAB PO PRN ×2 (02:32→08:31)
[2017-07-26 05:17] VITALS: BP 100/68; PULSE 100; RESP 21; TEMP 96.9; O2SAT 94
[2017-07-26 08:00] VITALS: BP 137/84; PULSE 133; PULSE 136; RESP 20; TEMP 101; O2SAT 93
[2017-07-26] MEDS: ALVIMOPAN 12 MG CAPSULE - Post-op dosing PO SCH ×2 (08:29→21:33)
[2017-07-26] MEDS: TAMSULOSIN HCL 0.4 MG CAP PO SCH ×2 (08:31→21:33)
[2017-07-26] MEDS: FLUoxetine HCL 20 MG CAP PO SCH (08:31)
[2017-07-26] MEDS: METOPROLOL SUCCINATE 25 MG EXTENDED RELEASE TAB PO SCH (08:34)
[2017-07-26] MEDS: PANTOPRAZOLE SOD 40 MG DELAYED RELEASE TAB PO SCH (08:40)
--- NOTE | 2017-07-26 11:05 | HHI.PR ---
Subjective Subjective Notes feels ok. reports 2 BMs and flatus, tolerating po, fever again this am. Objective Vitals/I&O Vital Signs Date Time Temp Pulse Resp B/P (MAP) Pulse Ox O2 Delivery O2 Flow Rate FiO2 07/26/17 08:00 101.0 136 20 137/84 (101) 93 07/26/17 02:11 Nasal Cannula 2.00 Labs Date/Time Source Procedure Growth Status 07/25/17 10:16 Urine Catheterized Urine Urine Culture Pending Received Cardiovascular: Regular Lungs: Clear Abdomen: Non-distended, Post-op tenderness, BS normal Wound Wound : Wound Location: Abdomen Appearance: Clean & Dry Dressing: Dry A/P Assessment and Plan POD 2 LAR/Colectomy appreciate psych asst. pt reports less anxiety today DC garza OOB and ambulate with son Full liquids. FU labs today Urine Cx pending Valente Naylor MD Jul 26, 2017 11:05
[2017-07-26] MEDS: BENZOCAINE 6 MG/MENTHOL 10 MG LOZENGE BUCCAL PRN ×3 (11:42→21:35)
[2017-07-26 12:00] VITALS: BP 95/63; PULSE 113; PULSE 116; RESP 18; TEMP 99.4; O2SAT 92
[2017-07-26] MEDS: ENOXAPARIN SODIUM 40 MG/0.4 ML SYRINGE SQ SCH (14:16)
[2017-07-26] MEDS: LEVOFLOXACIN 750 MG PREMIX INJ 150 ML IV SCH (14:16)
[2017-07-26 15:30] LABS: AUTOMATED NEUTROPHIL # 13.5 TH/MM3 (1.8-7.7); BASOPHIL % 0.1 % (0.0-2.0); EOSINOPHIL % 0.1 % (0.0-4.0); HEMATOCRIT 34.8 % (39.0-51.0); HEMOGLOBIN 11.8 GM/DL (13.0-17.0); LYMPH % 3.7 % (9.0-44.0); LYMPHOCYTE # 0.6 TH/MM3 (1.0-4.8); MEAN CELL VOLUME 89.5 FL (80.0-100.0); MEAN CORPUSCULAR HEMOGLOBIN 30.2 PG (27.0-34.0); MEAN CORPUSCULAR HGB CONC 33.8 % (32.0-36.0); MEAN PLATELET VOLUME 9.1 FL (7.0-11.0); MONO % 5.2 % (0.0-8.0); MONOCYTE # 0.8 TH/MM3 (0-0.9); NEUT % 90.9 % (16.0-70.0); PLATELET COUNT 159 TH/MM3 (150-450); RED BLOOD COUNT 3.89 MIL/MM3 (4.50-5.90); RED CELL DISTRIBUTION WIDTH 13.9 % (11.6-17.2); WHITE BLOOD COUNT 14.8 TH/MM3 (4.0-11.0)
[2017-07-26 16:00] VITALS: BP 141/80; PULSE 127; RESP 19; TEMP 100.1; O2SAT 92
[2017-07-26] MEDS ORDERED: CALCIUM CARBONATE 500 MG CHEWABLE TAB CHEW PRN (17:15)
[2017-07-26 20:00] VITALS: BP 100/71; PULSE 108; PULSE 110; RESP 20; TEMP 98.8; O2SAT 93
[2017-07-27] VITALS: BP 108/77; PULSE 140; RESP 20; TEMP 99.1; O2SAT 93
[2017-07-27 01:49] VITALS: PULSE 107
[2017-07-27] MEDS: oxyCODONE/ACETAMINOPHEN 5 MG/325 MG TAB PO PRN ×2 (03:49→09:23)
[2017-07-27 04:00] VITALS: BP 149/84; PULSE 118; RESP 20; TEMP 97.6; O2SAT 93
[2017-07-27 08:00] VITALS: BP 129/80; PULSE 109; RESP 19; TEMP 98.9; O2SAT 92
[2017-07-27] MEDS ORDERED: LEVOFLOXACIN 500 MG TAB PO SCH (09:00)
[2017-07-27] MEDS: LORazepam 2 MG TAB PO PRN (09:15)
[2017-07-27] MEDS: BENZOCAINE 6 MG/MENTHOL 10 MG LOZENGE BUCCAL PRN (09:17)
[2017-07-27] MEDS: TAMSULOSIN HCL 0.4 MG CAP PO SCH (09:18)
[2017-07-27] MEDS: FLUoxetine HCL 20 MG CAP PO SCH (09:18)
[2017-07-27] MEDS: PANTOPRAZOLE SOD 40 MG DELAYED RELEASE TAB PO SCH (09:18)
[2017-07-27] MEDS: METOPROLOL SUCCINATE 25 MG EXTENDED RELEASE TAB PO SCH (09:18)
[2017-07-27] MEDS: ALVIMOPAN 12 MG CAPSULE - Post-op dosing PO SCH (09:18)
[2017-07-27 09:23] VITALS: PULSE 110
--- NOTE | 2017-07-27 09:35 | HHI.DS ---
Discharge Summary Admission Date Jul 24, 2017 at 11:52 Discharge Date: Jul 27, 2017 Admitting Diagnosis Brief History 67 year old male POD3 laparoscopic sigmoid colectomy CBC/BMP: 07/26/17 1455 07/25/17 0845 Significant Findings Laboratory Tests Test 07/24/17 12:45 07/25/17 08:45 07/25/17 10:16 07/26/17 14:55 Monocytes (%) (Auto) 11.7 % (0.0-8.0) Random Glucose 111 MG/DL (74-106) Sodium Level 135 MEQ/L (136-145) 134 MEQ/L (136-145) White Blood Count 12.2 TH/MM3 (4.0-11.0) 14.8 TH/MM3 (4.0-11.0) Red Blood Count 4.48 MIL/MM3 (4.50-5.90) 3.89 MIL/MM3 (4.50-5.90) Neutrophils (%) (Auto) 90.0 % (16.0-70.0) 90.9 % (16.0-70.0) Lymphocytes (%) (Auto) 3.2 % (9.0-44.0) 3.7 % (9.0-44.0) Neutrophils # (Auto) 11.0 TH/MM3 (1.8-7.7) 13.5 TH/MM3 (1.8-7.7) Lymphocytes # (Auto) 0.4 TH/MM3 (1.0-4.8) 0.6 TH/MM3 (1.0-4.8) Calcium Level 8.0 MG/DL (8.5-10.1) Estimat Glomerular Filtration Rate 63 ML/MIN (>89) Urine Turbidity HAZY (CLEAR) Urine Ketones TRACE mg/dL (NEG) Urine Occult Blood MOD (NEG) Urine Leukocyte Esterase MOD (NEG) Urine WBC 27 /hpf (0-5) Urine Bacteria RARE /hpf (NONE) Urine Mucus FEW /lpf (OCC) Hemoglobin 11.8 GM/DL (13.0-17.0) Hematocrit 34.8 % (39.0-51.0) PE at Discharge Alert and awake Cardio: RRR Resp: CTAB Abd: incision with mild serous drainage; deya; abdomen soft; minimal tenderness Hospital Course This is a 67-year-old male to the operating room for a laparoscopic sigmoid colectomy. The patient's diet was advanced as tolerated. The patient's pain was controlled using oral pain medications. The patient was able to easily independently. The patient will follow-up with Dr. Naylor on Sunday. Pt Condition on Discharge: Good Discharge Disposition: Discharge Home Discharge Instructions DIET: Follow Instructions for: As Tolerated, No Restrictions Activities you can perform: See Additionl Instruction Other Activity Instructions: Okay to shower; pat incision dry Avoid heavy pushing pulling or lifting Emily Jasso Jul 27, 2017 09:35
--- NOTE | 2017-07-27 13:25 | HHI.PYPN ---
Subjective Remarks The patient was seen today for psychiatric reevaluation. Patient was in the company of his 17 years old son. He agreed with his son permanence while interview. Patient reports being on pain. He had a rough sleep last night. Continues to be anxious, he reports difficulty moving and breathing due to the pain. Patient requests having more Ativan during the night, he says that he takes 3 mg every night for 27 years. He denies suicidal and homicidal ideation , he denies visual and auditory hallucinations. I explained to the patient that we have to be careful with sedating medication after surgery and when he is prescribed with medication for pain. He expresses understanding. He is oriented 3, logical, coherent and relevant Review of Systems Gastrointestinal: COMPLAINS OF: Abdominal pain Psychiatric: COMPLAINS OF: Anxiety Except as stated in HPI: all other systems reviewed are Neg Mental Status Examination Appearance: Appropriate Consciousness: Alert Orientation: x4 Motor Activity: Normal gait Speech: Unremarkable Language: Adequate Fund of Knowledge: Adequate Attention and Concentration: Adequate Memory: Unremarkable Mood: Appropriate Affect: Appropriate Thought Process & Associations: Intact Thought Content: Appropriate Hallucination Type: None Delusion Type: None Suicidal Ideation: No Suicidal Plan: No Suicidal Intention: No Homicidal Ideation: No Homicidal Plan: No Homicidal Intention: No Insight: Adequate Judgment: Adequate Results Labs Test 07/26/17 14:55 White Blood Count 14.8 TH/MM3 Red Blood Count 3.89 MIL/MM3 Hemoglobin 11.8 GM/DL Hematocrit 34.8 % Mean Corpuscular Volume 89.5 FL Mean Corpuscular Hemoglobin 30.2 PG Mean Corpuscular Hemoglobin Concent 33.8 % Red Cell Distribution Width 13.9 % Platelet Count 159 TH/MM3 Mean Platelet Volume 9.1 FL Neutrophils (%) (Auto) 90.9 % Lymphocytes (%) (Auto) 3.7 % Monocytes (%) (Auto) 5.2 % Eosinophils (%) (Auto) 0.1 % Basophils (%) (Auto) 0.1 % Neutrophils # (Auto) 13.5 TH/MM3 Lymphocytes # (Auto) 0.6 TH/MM3 Monocytes # (Auto) 0.8 TH/MM3 Eosinophils # (Auto) 0.0 TH/MM3 Basophils # (Auto) 0.0 TH/MM3 CBC Comment DIFF FINAL Differential Comment Date/Time Source Procedure Growth Status 07/25/17 10:16 Urine Catheterized Urine Urine Culture - Final NO GROWTH IN 48 HOURS. Complete Vitals/IOs Vital Signs Date Time Temp Pulse Resp B/P (MAP) Pulse Ox O2 Delivery O2 Flow Rate FiO2 07/27/17 09:23 110 07/27/17 08:00 98.9 19 129/80 (96) 92 07/26/17 11:25 Nasal Cannula 2.00 Intake and Output 07/27/17 07/27/17 07/28/17 08:00 16:00 00:00 Intake Total 610 ml Output Total 901 ml Balance -291 ml Assessment & Plan Problem List: (1) Anxiety ICD Codes: F41.9 - Anxiety Status: Acute Assessment & Plan: Continue current psychotropic regimen. Brief supportive psychotherapy. Assessment & Plan Estimated LOS: days Justification for Cont. Inpt. Patient does not meet criteria for involuntary psychiatric admission. Nithin Red MD Jul 27, 2017 13:25
== END 2017-07-27 11:38 | disposition home or self-care (01) | DRG 331 ==
LOC: HSDI 07-24 11:52 → N07B 07-24 19:11
PROVIDERS: ADMIT Surgery Trauma Surgery; ATTEND Surgery Trauma Surgery
PROC: 0DJD8ZZ Inspection of Lower Intestinal Tract, Via Natural or Artificial Opening Endoscopic (ICD-10-PCS; 2017-07-24)
PROC: 3E0T3BZ Introduction of Anesthetic Agent into Peripheral Nerves and Plexi, Percutaneous Approach (ICD-10-PCS; 2017-07-24)
PROC: 0DTN4ZZ Resection of Sigmoid Colon, Percutaneous Endoscopic Approach (ICD-10-PCS; principal; 2017-07-24 13:41)
PROC: 0T9B70Z Drainage of Bladder with Drainage Device, Via Natural or Artificial Opening (ICD-10-PCS; 2017-07-25)
DX: C18.7 Malignant neoplasm of sigmoid colon (principal); I48.91 Unspecified atrial fibrillation; F41.9 Anxiety disorder, unspecified; I10 Essential (primary) hypertension; R33.9 Retention of urine, unspecified; R50.9 Fever, unspecified; G47.00 Insomnia, unspecified; F32.9 Major depressive disorder, single episode, unspecified; Z88.0 Allergy status to penicillin
CPT/HCPCS: 80048; 81001; 85025; 86850; 86900; 86901; 87086; 88307; 88309; 93005; 94150; C9290; J0131; J1100; J1170; J1650; J1885; J1956; J2250; J2270; J2370; J2405; J2710; J3010; J3370; J3480; J7050; J7120

== ENCOUNTER 2017-08-11 18:32 | Emergency (ER) | payer MEDICARE, MEDICAID ==
[~2017-08-11] VITALS: Ht 177.8 cm; Wt 100.0 kg
[2017-08-11 18:36] VITALS: BP 167/89; PULSE 115; RESP 16; TEMP 99.3; O2SAT 94
[2017-08-11] MEDS ORDERED: CEPH-460 PO (19:22)
--- NOTE | 2017-08-11 19:24 | PD ---
HPI Chief Complaint: Skin Problem Time Seen by Provider: 19:13 Travel History International Travel<30 days: No Contact w/Intl Traveler<30days: No Traveled to known affect area: No History of Present Illness HPI The patient is a 67-year-old male that on the ninth of this month had a partial colon resection for colon cancer. This was done by Dr. Valente wallace. He has an appointment to see Valente wallace on Sunday, 4 days from today. He developed a small cellulitis and was given Keflex. The patient comes in today because he ran out of Keflex. The surgical incision is open and there is slight drainage. He has some mild local pain but he is reluctant to take his Lortabs for pain because they make him feel strange. He has had a low-grade fever at home, here his temperature is 99.3. He states he has been out of his Keflex for about 24 hours. PFSH Past Medical History Hx Anticoagulant Therapy: No Arthritis: Yes Atrial Fibrillation: Yes Autoimmune Disease: No Anxiety: Yes Depression: Yes Cardiovascular Problems: Yes (afib) Diabetes: No Diminished Hearing: Yes (RIGHT) Endocrine: No GERD: Yes Genitourinary: No Headaches: Yes Hiatal Hernia: Yes (hernia repair left groin) Hypertension: Yes Immune Disorder: No Musculoskeletal: Yes Neurologic: No Psychiatric: Yes (panic attacks) Reproductive: Yes Respiratory: Yes Immunizations Current: Yes Sleep Apnea: Yes Thyroid Disease: No Past Surgical History Abdominal Surgery: Yes (HERNIA REPAIR left groin) AICD: No Cardiac Surgery: No Endocrine Surgery: No Genitourinary Surgery: No Gynecologic Surgery: No Joint Replacement: No Pacemaker: No Thoracic Surgery: No Social History Alcohol Use: No Tobacco Use: No (NEVER) Substance Use: No Allergies-Medications (Allergen,Severity, Reaction): Coded Allergies: penicillin G (Unverified Allergy, Unknown, UNKNOWN, 07/24/17) Reported Meds & Prescriptions Reported Meds & Active Scripts Active Omeprazole 40 Mg Cap 40 Mg PO DAILY Reported Metoprolol Succinate ER 24 HR (Metoprolol Succinate) 25 Mg Tab 25 Mg PO DAILY Ativan (Lorazepam) 2 Mg Tab 2 Mg PO HS PRN Prozac (Fluoxetine HCl) 20 Mg Cap 20 Mg PO DAILY Review of Systems Except as stated in HPI: all other systems reviewed are Neg Physical Exam Narrative GENERAL: The patient is alert, oriented 3 and slight apparent distress with his abdominal discomfort. His pulse is 115 and blood pressure 167/89 with oximetry 94% but the rest the vital signs are normal. The temperature is 99.3. SKIN: Focused skin assessment warm/dry. There is a small area of cellulitis surrounding the incision about 3 cm from the incision on both sides. There is slight tenderness around this HEAD: Atraumatic. Normocephalic. EYES: Pupils equal and round. No scleral icterus. No injection or drainage. ENT: No nasal bleeding or discharge. Mucous membranes pink and moist. NECK: Trachea midline. No JVD. CARDIOVASCULAR: Regular rate and rhythm. No murmur appreciated. RESPIRATORY: No accessory muscle use. Clear to auscultation. Breath sounds equal bilaterally. GASTROINTESTINAL: Abdomen soft, with minimal discomfort to direct palpation, nondistended. Hepatic and splenic margins not palpable. No guarding or rebound is present. No deep tenderness appears to be present. No foul smell to the wound is present. MUSCULOSKELETAL: No obvious deformities. No clubbing. No cyanosis. No edema. NEUROLOGICAL: Awake and alert. No obvious cranial nerve deficits. Motor grossly within normal limits. Normal speech. PSYCHIATRIC: Appropriate mood and affect; insight and judgment normal. Data Data Last Documented VS Vital Signs Date Time Temp Pulse Resp B/P (MAP) Pulse Ox O2 Delivery O2 Flow Rate FiO2 08/11/17 18:36 99.3 115 16 167/89 (115) 94 MDM Medical Decision Making Medical Screen Exam Complete: Yes Emergency Medical Condition: Yes Medical Record Reviewed: Yes Differential Diagnosis Cellulitis, deep wound infection-unlikely, intra-abdominal abscess-unlikely Narrative Course The patient appears to have a cellulitis. Have his Keflex refilled and follow- up on Sunday as scheduled with Dr. wallace. All the tenderness is around the skin area and there appears to be no deep tenderness present. Diagnosis Primary Impression: Cellulitis of abdominal wall Additional Instructions: Follow-up with Dr. wallace on Sunday as scheduled. The Keflex is one tablet every 6 hours as before. Med/Other Pt SpecificInfo: Prescription(s) given Scripts Cephalexin (Keflex) 500 Mg Capsule 500 MG PO Q6H for Infection, #30 CAP 0 Refills Prov: Nick Horan MD 08/11/17 Disposition: DISCHARGE HOME Condition: Stable Nick Horan MD Aug 11, 2017 19:24
[2017-08-11] MEDS ORDERED: CEPHALEXIN MONOHYDRATE 500 MG CAP PO ONE (19:30)
[2017-08-11] MEDS ORDERED: HYDR-3580 PO (19:56)
== END 2017-08-11 19:59 | disposition home or self-care (01) ==
LOC: PHED 18:32
DX: L03.311 Cellulitis of abdominal wall (principal); C18.9 Malignant neoplasm of colon, unspecified; I48.91 Unspecified atrial fibrillation; F32.9 Major depressive disorder, single episode, unspecified; K21.9 Gastro-esophageal reflux disease without esophagitis; I10 Essential (primary) hypertension; Z90.49 Acquired absence of other specified parts of digestive tract
CPT/HCPCS: 99281

== ENCOUNTER 2017-08-13 18:00 | Emergency (ER) | payer MEDICARE, MEDICAID ==
[~2017-08-13] VITALS: Ht 177.8 cm; Wt 102.5 kg
[~2017-08-13 18:00] MED LIST changes: +CEPH-460 PO; +HYDR-3580 PO
[2017-08-13 18:22] VITALS: BP 130/70; PULSE 89; RESP 16; TEMP 98.6; O2SAT 95
[2017-08-13] MEDS ORDERED: HYDR-3580 PO (19:15)
--- NOTE | 2017-08-13 19:19 | PD ---
HPI Chief Complaint: Medication Refill Request Time Seen by Provider: 19:09 Travel History International Travel<30 days: No Contact w/Intl Traveler<30days: No Traveled to known affect area: No History of Present Illness HPI 67-year-old male who underwent recent laparoscopic sigmoid colectomy in early July, surgeon Dr. Naylor, subsequently developed postoperative skin infection , on Keflex, presents requesting medication refill. He has been taking Lortab 7.5-325 every 4 as needed for pain, primarily at night. He ran out today and the pain is particularly bad at night. He is requesting enough medication to last until tomorrow. He has an appointment with a surgeon tomorrow. He denies any acute abdominal pain. He denies any fevers or chills. He has no other complaints at this time. PFSH Past Medical History Hx Anticoagulant Therapy: No Arthritis: Yes Atrial Fibrillation: Yes Autoimmune Disease: No Anxiety: Yes Depression: Yes Cardiovascular Problems: Yes Diabetes: No Diminished Hearing: Yes (RIGHT) Endocrine: No Gastrointestinal Disorders: Yes GERD: Yes Genitourinary: No Headaches: Yes Hiatal Hernia: Yes Hypertension: Yes Immune Disorder: No Musculoskeletal: Yes Neurologic: No Psychiatric: Yes Reproductive: Yes Respiratory: Yes Immunizations Current: Yes Sleep Apnea: Yes Thyroid Disease: No Past Surgical History Abdominal Surgery: Yes (HERNIA REPAIR, COLON RESECTION 07/22/17) AICD: No Cardiac Surgery: No Endocrine Surgery: No Genitourinary Surgery: No Gynecologic Surgery: No Joint Replacement: No Pacemaker: No Thoracic Surgery: No Other Surgery: Yes Social History Alcohol Use: No Tobacco Use: No (NEVER) Substance Use: No Allergies-Medications (Allergen,Severity, Reaction): Coded Allergies: penicillin G (Unverified Allergy, Unknown, UNKNOWN, 08/13/17) Reported Meds & Prescriptions Reported Meds & Active Scripts Active Hydrocodone-Acetaminophen 7.5 Mg-325 Mg Tab 1 Tab PO Q4H PRN Keflex (Cephalexin) 500 Mg Capsule 500 Mg PO Q6H Omeprazole 40 Mg Cap 40 Mg PO DAILY Reported Hydrocodone-Acetaminophen 7.5 Mg-325 Mg Tab 1 Tab PO Q4H PRN Metoprolol Succinate ER 24 HR (Metoprolol Succinate) 25 Mg Tab 25 Mg PO DAILY Ativan (Lorazepam) 2 Mg Tab 2 Mg PO HS PRN Prozac (Fluoxetine HCl) 20 Mg Cap 20 Mg PO DAILY Review of Systems Except as stated in HPI: all other systems reviewed are Neg Physical Exam Narrative GENERAL: Well-developed well-nourished male in no acute distress SKIN: Warm and dry. Dressing in place on the lower abdominal wall. HEAD: Atraumatic. Normocephalic. EYES: Pupils equal and round. No scleral icterus. No injection or drainage. ENT: No nasal bleeding or discharge. Mucous membranes pink and moist. NECK: Trachea midline. No JVD. CARDIOVASCULAR: Regular rate and rhythm. No murmur appreciated. RESPIRATORY: No accessory muscle use. Clear to auscultation. Breath sounds equal bilaterally. GASTROINTESTINAL: Abdomen soft, non-tender, nondistended. Hepatic and splenic margins not palpable. MUSCULOSKELETAL: No obvious deformities. No clubbing. No cyanosis. No edema. NEUROLOGICAL: Awake and alert. No obvious cranial nerve deficits. Motor grossly within normal limits. Normal speech. PSYCHIATRIC: Appropriate mood and affect; insight and judgment normal. Data Data Last Documented VS Vital Signs Date Time Temp Pulse Resp B/P (MAP) Pulse Ox O2 Delivery O2 Flow Rate FiO2 08/13/17 18:22 98.6 89 16 130/70 (90) 95 Orders Orders Ed Discharge Order (08/13/17 19:16) [facility] Medical Decision Making Medical Screen Exam Complete: Yes Emergency Medical Condition: Yes Medical Record Reviewed: Yes Differential Diagnosis Medication refill, wound dehiscence, infected wound, seroma, abscess Narrative Course The patient will be given a short refill of his Lortab. Diagnosis Primary Impression: Medication refill Additional Instructions: Follow-up tomorrow with Dr. Naylor as scheduled. Return for any emergent medical conditions. Med/Other Pt SpecificInfo: Prescription(s) given Scripts Hydrocodone-Acetaminophen (Hydrocodone-Acetaminophen) 7.5 Mg-325 Mg Tab 1 TAB PO Q4H Y for PAIN, #15 TAB 0 Refills Prov: Nick Horan MD 08/13/17 Disposition: 01 DISCHARGE HOME Condition: Stable Carmelo Page Aug 13, 2017 19:19
== END 2017-08-13 19:22 | disposition home or self-care (01) ==
LOC: PHED 18:00 → PHEFT 19:22
DX: Z76.0 Encounter for issue of repeat prescription (principal); I10 Essential (primary) hypertension; I48.91 Unspecified atrial fibrillation; F32.9 Major depressive disorder, single episode, unspecified; K21.9 Gastro-esophageal reflux disease without esophagitis; Z98.890 Other specified postprocedural states; Z88.0 Allergy status to penicillin; Z79.899 Other long term (current) drug therapy
CPT/HCPCS: 99281

== ENCOUNTER 2017-08-15 19:15 | Emergency (ER) | payer MEDICARE, MEDICAID ==
[2017-08-15 19:54] VITALS: BP 157/83; PULSE 94; RESP 20; TEMP 98.8
[2017-08-15] MEDS ORDERED: PERC7.5T13 PO (21:13)
--- NOTE | 2017-08-15 21:13 | PD ---
HPI Chief Complaint: Medication Refill Request Time Seen by Provider: 21:06 Travel History International Travel<30 days: No Contact w/Intl Traveler<30days: No Traveled to known affect area: No History of Present Illness HPI The patient is a 67-year-old male that has a slightly infected surgical site and is on Keflex for this. He follows up with his surgeon tomorrow. He comes in because he needs a refill on his hydrocodone 7.5 mg tablets. He was given 15 several days ago but he already used these up. PFSH Past Medical History Hx Anticoagulant Therapy: No Arthritis: Yes Atrial Fibrillation: Yes Autoimmune Disease: No Anxiety: Yes Depression: Yes Cardiovascular Problems: Yes Diabetes: No Diminished Hearing: Yes (RIGHT) Endocrine: No Gastrointestinal Disorders: Yes GERD: Yes Genitourinary: No Headaches: Yes Hiatal Hernia: Yes Hypertension: Yes Immune Disorder: No Musculoskeletal: Yes Neurologic: No Psychiatric: Yes Reproductive: Yes Respiratory: Yes Immunizations Current: Yes Sleep Apnea: Yes Thyroid Disease: No Tetanus Vaccination: < 5 Years Past Surgical History Abdominal Surgery: Yes (HERNIA REPAIR, COLON RESECTION 07/22/17) AICD: No Cardiac Surgery: No Endocrine Surgery: No Genitourinary Surgery: No Gynecologic Surgery: No Joint Replacement: No Pacemaker: No Thoracic Surgery: No Other Surgery: Yes Social History Alcohol Use: No Tobacco Use: No Substance Use: No Allergies-Medications (Allergen,Severity, Reaction): Coded Allergies: penicillin G (Unverified Allergy, Unknown, UNKNOWN, 08/15/17) Reported Meds & Prescriptions Reported Meds & Active Scripts Active Hydrocodone-Acetaminophen 7.5 Mg-325 Mg Tab 1 Tab PO Q4H PRN Keflex (Cephalexin) 500 Mg Capsule 500 Mg PO Q6H Omeprazole 40 Mg Cap 40 Mg PO DAILY Reported Metoprolol Succinate ER 24 HR (Metoprolol Succinate) 25 Mg Tab 25 Mg PO DAILY Ativan (Lorazepam) 2 Mg Tab 2 Mg PO HS PRN Prozac (Fluoxetine HCl) 20 Mg Cap 20 Mg PO DAILY Review of Systems Except as stated in HPI: all other systems reviewed are Neg Physical Exam Narrative GENERAL: Well-nourished, well-developed patient in slight apparent distress with his suprapubic discomfort. His vital signs show blood pressure 157/83 but are otherwise normal. SKIN: Focused skin assessment warm/dry. There is a slight cellulitis about 10 cm in diameter around the suprapubic catheter. This is slightly tender. No pus is present. HEAD: Normocephalic. EYES: No scleral icterus. No injection or drainage. NECK: Supple, trachea midline. No JVD or lymphadenopathy. CARDIOVASCULAR: Regular rate and rhythm without murmurs, gallops, or rubs. RESPIRATORY: Breath sounds equal bilaterally. No accessory muscle use. GASTROINTESTINAL: Abdomen soft, non-tender, nondistended. MUSCULOSKELETAL: No cyanosis, or edema. BACK: Nontender without obvious deformity. No CVA tenderness. Data Data Last Documented VS Vital Signs Date Time Temp Pulse Resp B/P (MAP) Pulse Ox O2 Delivery O2 Flow Rate FiO2 08/15/17 19:54 98.8 94 20 157/83 (107) MDM Medical Decision Making Medical Screen Exam Complete: Yes Emergency Medical Condition: Yes Medical Record Reviewed: Yes Differential Diagnosis Wound infection, drug seeking behavior-unlikely, cellulitis Narrative Course The patient has cellulitis around the suprapubic incision. This is not getting any worse but the patient does need some pain medication. He will be given 15 of the Percocet 7.5. Diagnosis Primary Impression: Wound infection after surgery Additional Impression: Cellulitis Additional Instructions: Do not miss your appointment with a surgeon tomorrow. Do not drink alcohol or drive on the Percocet 7.5. Continue the antibiotic. Med/Other Pt SpecificInfo: Prescription(s) given Scripts Oxycodone-Acetaminophen (Percocet) 7.5-325 mg Tab 1 TAB PO Q4H Y for PAIN, #15 TAB 0 Refills Prov: Nick Horan MD 08/15/17 Disposition: 01 DISCHARGE HOME Condition: Stable Nick Horan MD Aug 15, 2017 21:13
[2017-08-15] MEDS ORDERED: oxyCODONE/ACETAMINOPHEN 7.5 MG/325 MG TAB PO ONE (21:15)
== END 2017-08-15 21:32 | disposition home or self-care (01) ==
LOC: PHED 19:15 → PHEFT 21:32
DX: T81.4XXA Infection following a procedure, initial encounter (principal); I10 Essential (primary) hypertension; K21.9 Gastro-esophageal reflux disease without esophagitis; Z76.0 Encounter for issue of repeat prescription
CPT/HCPCS: 99283

== ENCOUNTER 2017-08-21 21:56 | Emergency (ER) | payer MEDICARE, MEDICAID ==
[~2017-08-21] VITALS: Ht 180.3 cm; Wt 99.8 kg
[~2017-08-21 21:56] MED LIST changes: +PERC7.5T13 PO
[2017-08-21 22:09] VITALS: BP 126/96; PULSE 81; RESP 18; TEMP 98.4; O2SAT 98
--- NOTE | 2017-08-21 22:39 | PD ---
HPI . Postoperative pain Chief Complaint: Pain: Acute or Chronic Time Seen by Provider: 22:31 Travel History International Travel<30 days: No Contact w/Intl Traveler<30days: No Traveled to known affect area: No History of Present Illness HPI This patient had a sigmoid colectomy done in July 24 for colon cancer. Records reveal that his pain was difficult to control while he was in the hospital. He was subsequently seen here on 08/11 with a mild cellulitis around the wound. He was given Keflex. Records indicate that this was actually a refill on his Keflex. Patient then came back here 2 days later reporting that he was out of his pain medication and was given Lortab 7.5 mg #15. 2 days later , he presented stating that he was out of Lortab. He was given Percocet 7.5 mg #15. Patient presents back to us tonight complaining with continued pain. Interestingly, the patient has been seen at nighttime every time he has been here. He does not have any worrisome symptoms such as fevers or chills. He states he cannot sleep secondary to the pain. He states that that is the reason why he always comes at night. PFSH Past Medical History Hx Anticoagulant Therapy: No Arthritis: Yes Atrial Fibrillation: Yes Autoimmune Disease: No Anxiety: Yes Depression: Yes Cardiovascular Problems: Yes Diabetes: No Diminished Hearing: Yes (RIGHT) Endocrine: No Gastrointestinal Disorders: Yes GERD: Yes Genitourinary: No Headaches: Yes Hiatal Hernia: Yes Hypertension: Yes Immune Disorder: No Musculoskeletal: Yes Neurologic: No Psychiatric: Yes Reproductive: Yes Respiratory: Yes Immunizations Current: Yes Sleep Apnea: Yes Thyroid Disease: No Tetanus Vaccination: < 5 Years Influenza Vaccination: No Past Surgical History Abdominal Surgery: Yes (HERNIA REPAIR, COLON RESECTION 07/22/17) AICD: No Cardiac Surgery: No Endocrine Surgery: No Genitourinary Surgery: No Gynecologic Surgery: No Joint Replacement: No Pacemaker: No Thoracic Surgery: No Other Surgery: Yes (WOUND VAC) Social History Alcohol Use: No Tobacco Use: No Substance Use: No Allergies-Medications (Allergen,Severity, Reaction): Coded Allergies: penicillin G (Unverified Allergy, Unknown, UNKNOWN, 08/21/17) Reported Meds & Prescriptions Reported Meds & Active Scripts Active Omeprazole 40 Mg Cap 40 Mg PO DAILY Reported Metoprolol Succinate ER 24 HR (Metoprolol Succinate) 25 Mg Tab 25 Mg PO DAILY Ativan (Lorazepam) 2 Mg Tab 2 Mg PO HS PRN Prozac (Fluoxetine HCl) 20 Mg Cap 20 Mg PO DAILY Review of Systems Except as stated in HPI: all other systems reviewed are Neg General / Constitutional: No: Fever, Chills Gastrointestinal: Positive: Abdominal Pain Physical Exam Narrative GENERAL: Awake and alert and in no acute distress. SKIN: Warm and dry. Skin has no redness or warmth. HEAD: Normocephalic/atraumatic. EYES: Pupils are equal. Extraocular movements are intact. NECK: Normal range of motion. CARDIOVASCULAR: Regular rate and rhythm. RESPIRATORY: Nonlabored respirations. ABDOMEN: Abdomen is soft and nontender. MUSCULOSKELETAL: Atraumatic. NEUROLOGICAL: Nonfocal. PSYCHIATRIC: Appropriate mood and affect. Data Data Last Documented VS Vital Signs Date Time Temp Pulse Resp B/P (MAP) Pulse Ox O2 Delivery O2 Flow Rate FiO2 08/21/17 22:09 98.4 81 18 126/96 (106) 98 MDM Medical Decision Making Medical Screen Exam Complete: Yes Emergency Medical Condition: Yes Differential Diagnosis Differential diagnosis of postoperative pain includes but is not limited to inadequate pain control, drug-seeking behavior, wound infection Narrative Course His patient presents approximately one month status post prescribed sigmoid colectomy for colon cancer. He presents to us jose alberto for pain control. This is his fourth visit to the emergency department since his surgery. I have explained to the patient that my prescribing narcotics for him at this point would be inappropriate. He needs to see his primary care provider or his surgeon. Diagnosis Primary Impression: Postoperative pain Patient Instructions: Abdominal Pain (ED), General Instructions Disposition: 01 DISCHARGE HOME Condition: Stable Damairs Gooden MD Aug 21, 2017 22:39
== END 2017-08-21 22:54 | disposition home or self-care (01) ==
LOC: PHEFT 21:56
DX: G89.18 Other acute postprocedural pain (principal); C18.9 Malignant neoplasm of colon, unspecified; I48.91 Unspecified atrial fibrillation; F32.9 Major depressive disorder, single episode, unspecified; I10 Essential (primary) hypertension; Z88.0 Allergy status to penicillin
CPT/HCPCS: 99281

== ENCOUNTER 2017-09-02 20:31 | Emergency (ER) | payer MEDICARE, MEDICAID ==
[~2017-09-02] VITALS: Ht 177.8 cm; Wt 102.0 kg
[~2017-09-02 20:31] MED LIST changes: -CEPH-460 PO; -HYDR-3580 PO; -PERC7.5T13 PO
[2017-09-02 20:38] VITALS: BP 141/85; PULSE 84; RESP 18; TEMP 98.2; O2SAT 96
--- NOTE | 2017-09-02 20:46 | PD ---
HPI Chief Complaint: Abdominal Pain Time Seen by Provider: 20:45 Travel History International Travel<30 days: No Contact w/Intl Traveler<30days: No Traveled to known affect area: No History of Present Illness HPI 67-year-old male came to the emergency room with history of some bumps that he noticed around his surgical site. Patient had a colon resection surgery 6 weeks ago. There was a wound dehiscence and it's healing by secondary intention. The home health nurse comes to put a dressing on every day. Patient says today he noticed that he had some bumps on the lower part of his abdomen that are red and looks like there might be pus. No history of fever or chills. Vital signs are stable. Patient has been in this emergency room at least 4-5 times bolus surgical. Mostly for pain control and medication refill for the past 6 weeks. He says that he does not see his surgeon for another 2 weeks. He did not call the office for this. PFSH Past Medical History Narrative Medical List of his past medical, surgical, social and family history as reviewed from the nursing note. Hx Anticoagulant Therapy: No Arthritis: Yes Atrial Fibrillation: Yes Autoimmune Disease: No Anxiety: Yes Depression: Yes Cardiovascular Problems: Yes Diabetes: No Diminished Hearing: Yes (RIGHT) Endocrine: No Gastrointestinal Disorders: Yes GERD: Yes Genitourinary: No Headaches: Yes Hiatal Hernia: Yes Hypertension: Yes Immune Disorder: No Musculoskeletal: Yes Neurologic: No Psychiatric: Yes Reproductive: Yes Respiratory: Yes Immunizations Current: Yes Sleep Apnea: Yes Thyroid Disease: No Past Surgical History Abdominal Surgery: Yes (HERNIA REPAIR, COLON RESECTION 07/22/17) AICD: No Cardiac Surgery: No Endocrine Surgery: No Genitourinary Surgery: No Gynecologic Surgery: No Joint Replacement: No Pacemaker: No Thoracic Surgery: No Other Surgery: Yes (WOUND VAC) Social History Alcohol Use: No Tobacco Use: No Substance Use: No Allergies-Medications (Allergen,Severity, Reaction): Coded Allergies: sulfamethoxazole (Verified Allergy, Severe, FACE RED AND HOT, HARD TO BREATH, 09/08/17) trimethoprim (Verified Allergy, Severe, FACE RED AND HOT, HARD TO BREATH, 09/08/17) clindamycin (Verified Allergy, Intermediate, panic attacks, 09/08/17) penicillin G (Unverified Allergy, Unknown, UNKNOWN, 09/08/17) Comments List of his allergies reviewed from the nursing note Reported Meds & Prescriptions Reported Meds & Active Scripts Active Bactroban Topical (Mupirocin) 22 Gm Cream 1 Applic TOPICAL BID Cipro (Ciprofloxacin HCl) 500 Mg Tab 500 Mg PO BID 5 Days Omeprazole 40 Mg Cap 40 Mg PO DAILY Reported Metoprolol Succinate ER 24 HR (Metoprolol Succinate) 25 Mg Tab 25 Mg PO DAILY Ativan (Lorazepam) 2 Mg Tab 2 Mg PO HS PRN Prozac (Fluoxetine HCl) 20 Mg Cap 20 Mg PO DAILY Narrative Medication List of his home medications reviewed from the nursing note. Review of Systems Except as stated in HPI: all other systems reviewed are Neg Physical Exam Narrative GENERAL: Awake, alert, anxious SKIN: Focused skin assessment warm/dry. Folliculitis on the lower abdominal area away from the surgical incision. HEAD: Atraumatic. Normocephalic. EYES: Pupils equal and round. No scleral icterus. No injection or drainage. ENT: No nasal bleeding or discharge. Mucous membranes pink and moist. NECK: Trachea midline. No JVD. CARDIOVASCULAR: Regular rate and rhythm. No murmur appreciated. RESPIRATORY: No accessory muscle use. Clear to auscultation. Breath sounds equal bilaterally. GASTROINTESTINAL: Abdomen soft, non-tender, nondistended. Hepatic and splenic margins not palpable. There is a packing into the disease since wound that's draining greenish fluid. As per the patient this wound is getting better. MUSCULOSKELETAL: No obvious deformities. No clubbing. No cyanosis. No edema. NEUROLOGICAL: Awake and alert. No obvious cranial nerve deficits. Motor grossly within normal limits. Normal speech. PSYCHIATRIC: Appropriate mood and affect; insight and judgment normal. Data Data Last Documented VS Orders Orders Complete Blood Count With Diff (09/02/17 21:11) Comprehensive Metabolic Panel (09/02/17 21:11) Iv Access Insert/Monitor (09/02/17 21:11) Ecg Monitoring (09/02/17 21:11) Oximetry (09/02/17 21:11) Sodium Chloride 0.9% Flush (Ns Flush) (09/02/17 21:15) Sulfamet-Trimeth Ds 800-160 Mg (Bactrim (09/02/17 22:15) Ed Discharge Order (09/02/17 22:17) Ct Abd/Pel W/O Iv Contrast (09/02/17 ) Labs Laboratory Tests Test 09/02/17 21:28 White Blood Count 7.9 TH/MM3 Red Blood Count 4.24 MIL/MM3 Hemoglobin 12.3 GM/DL Hematocrit 36.3 % Mean Corpuscular Volume 85.7 FL Mean Corpuscular Hemoglobin 29.1 PG Mean Corpuscular Hemoglobin Concent 34.0 % Red Cell Distribution Width 14.3 % Platelet Count 242 TH/MM3 Mean Platelet Volume 8.0 FL Neutrophils (%) (Auto) 53.0 % Lymphocytes (%) (Auto) 30.9 % Monocytes (%) (Auto) 11.5 % Eosinophils (%) (Auto) 3.9 % Basophils (%) (Auto) 0.7 % Neutrophils # (Auto) 4.1 TH/MM3 Lymphocytes # (Auto) 2.5 TH/MM3 Monocytes # (Auto) 0.9 TH/MM3 Eosinophils # (Auto) 0.3 TH/MM3 Basophils # (Auto) 0.1 TH/MM3 CBC Comment DIFF FINAL Differential Total Cells Counted 100 Neutrophils % (Manual) 62 % Lymphocytes % 30 % Monocytes % 7 % Eosinophils % 1 % Neutrophils # (Manual) 4.9 TH/MM3 Differential Comment FINAL DIFF MANUAL Platelet Estimate NORMAL Platelet Morphology Comment NORMAL Red Cell Morphology Comment NORMAL Blood Urea Nitrogen 15 MG/DL Creatinine 0.78 MG/DL Random Glucose 93 MG/DL Total Protein 7.3 GM/DL Albumin 3.3 GM/DL Calcium Level 8.3 MG/DL Alkaline Phosphatase 69 U/L Aspartate Amino Transf (AST/SGOT) 25 U/L Alanine Aminotransferase (ALT/SGPT) 25 U/L Total Bilirubin 0.4 MG/DL Sodium Level 134 MEQ/L Potassium Level 3.8 MEQ/L Chloride Level 98 MEQ/L Carbon Dioxide Level 29.5 MEQ/L Anion Gap 7 MEQ/L Estimat Glomerular Filtration Rate 100 ML/MIN [facility] Medical Decision Making Medical Screen Exam Complete: Yes Emergency Medical Condition: Yes Medical Record Reviewed: Yes Differential Diagnosis Folliculitis, intra-abdominal abscess, abdominal wall abscess Narrative Course 9:42 PM awaiting for blood test results and CAT scan to be done and resulted. 10:15 PM patient refused to do a CT with contrast. I have canceled the CT at this point altogether since in my opinion patient more folliculitis. I've given him a dose of Bactrim here and prescription to go home with. He needs to contact his surgeon. Procedures EKG Prior to Arrival: No Diagnosis Primary Impression: Folliculitis Referrals: Primary Care Physician Additional Instructions: Please follow-up with your surgeon in your primary care physician. Take the medication as per the prescription direction. Med/Other Pt SpecificInfo: Prescription(s) given Disposition: 01 DISCHARGE HOME Condition: Stable Koki Fraga MD Sep 02, 2017 20:46
[2017-09-02 20:57] VITALS: BP 149/93; PULSE 88; RESP 18; TEMP 98.2; O2SAT 97
[2017-09-02] MEDS ORDERED: SODIUM CHLORIDE 0.9% FLUSH 10 ML FLUSH IV FLUSH PRN (21:15)
[2017-09-02 21:30] VITALS: O2SAT 98
[2017-09-02 21:41] LABS: AUTOMATED NEUTROPHIL # 4.1 TH/MM3 (1.8-7.7); BASOPHIL # 0.1 TH/MM3 (0-0.2); BASOPHIL % 0.7 % (0.0-2.0); EOSINOPHIL # 0.3 TH/MM3 (0-0.4); EOSINOPHIL % 3.9 % (0.0-4.0); HEMATOCRIT 36.3 % (39.0-51.0); HEMOGLOBIN 12.3 GM/DL (13.0-17.0); LYMPH % 30.9 % (9.0-44.0); LYMPHOCYTE # 2.5 TH/MM3 (1.0-4.8); MEAN CELL VOLUME 85.7 FL (80.0-100.0); MEAN CORPUSCULAR HEMOGLOBIN 29.1 PG (27.0-34.0); MONO % 11.5 % (0.0-8.0); MONOCYTE # 0.9 TH/MM3 (0-0.9); PLATELET COUNT 242 TH/MM3 (150-450); RED BLOOD COUNT 4.24 MIL/MM3 (4.50-5.90); RED CELL DISTRIBUTION WIDTH 14.3 % (11.6-17.2); WHITE BLOOD COUNT 7.9 TH/MM3 (4.0-11.0)
[2017-09-02 21:49] LABS: CHLORIDE 98 MEQ/L (98-107); SODIUM (NA) 134 MEQ/L (136-145)
[2017-09-02 21:54] LABS: ALBUMIN 3.3 GM/DL (3.4-5.0); BICARBONATE 29.5 MEQ/L (21.0-32.0); BLOOD UREA NITROGEN 15 MG/DL (7-18); CALCIUM 8.3 MG/DL (8.5-10.1); GLUCOSE,RANDOM 93 MG/DL (74-106)
[2017-09-02 21:57] LABS: ALT (GPT) 25 U/L (12-78); AST (GOT) 25 U/L (15-37)
[2017-09-02 21:58] LABS: CREATININE 0.78 MG/DL (0.60-1.30); GLOMERULAR FILTRATION RATE 100 ML/MIN (>89)
[2017-09-02 21:59] LABS: TOTAL BILIRUBIN ADULT 0.4 MG/DL (0.2-1.0); TOTAL PROTEIN 7.3 GM/DL (6.4-8.2)
[2017-09-02 22:00] LABS: ALKALINE PHOSPHATASE 69 U/L (45-117)
[2017-09-02 22:07] LABS: LYMPHOCYTES 30 % (9-44); MONOCYTES 7 % (0-8); NEUTROPHIL # MANUAL DIFF 4.9 TH/MM3 (1.8-7.7); POLYS (SEG NEUTROPHILS) 62 % (16-70)
[2017-09-02] MEDS ORDERED: SULFAMETHOXAZOLE-TRIMETHOPRIM DS 800-160 MG TAB PO ONE (22:15)
[2017-09-02] MEDS ORDERED: BACT800T5 PO (22:17)
[2017-09-02 22:22] VITALS: BP 142/84; PULSE 83; RESP 18; O2SAT 95
--- NOTE | 2017-09-02 22:46 | RADRPT ---
EXAM DATE/TIME: 09/02/2017 22:13 [facility] COMPARISON: CT ABDOMEN & PELVIS W/O CONTRAST, April 10, 2017, 13:12. INDICATIONS : Abdominal pain along incision post colon resection. ORAL CONTRAST: No oral contrast ingested. RADIATION DOSE: 19.54 CTDIvol (mGy) MEDICAL HISTORY : Hypertension. Gastroesophageal reflux disease. Carcinoma, colon. SURGICAL HISTORY : Inguinal hernia repair. Colon resection. ENCOUNTER: Initial ACUITY: 2 days PAIN SCALE: 6/10 LOCATION: Bilateral lower quadrant TECHNIQUE: Volumetric scanning of the abdomen and pelvis was performed. Using automated exposure control and ad justment of the mA and/or kV according to patient size, radiation dose was kept as low as reasonably achievable to obtain optimal diagnostic quality images. DICOM format image data is available electro nically for review and comparison. FINDINGS: LOWER LUNGS: There is elevation of the left hemidiaphragm with atelectasis at the left lung base. LIVER: There are 4 low density lesions identified in the liver measuring up to 1.3 cm. The largest lesion burrell s features characteristic of a simple cyst while the smaller lesions are too small to characterize bu t remain stable. There is no dilation of the biliary tree. No calcified gallstones. SPLEEN: Normal size without lesion. PANCREAS: Within normal limits. KIDNEYS: Normal in size and shape. There is no mass, stone, or hydronephrosis. ADRENAL GLANDS: Within normal limits. VASCULAR: There is no aortic aneurysm. There is mild atherosclerotic disease. BOWEL/MESENTERY: There is a diverticulum arising from the posterior gastric cardia region. It is stable. Small bowel d emonstrates no abnormality. There has been prior colon surgery near the rectum. Anastomosis demonstra nirmal no abnormality. There is no free intraperitoneal air or fluid. Stranding is present in the presac ral space. ABDOMINAL WALL: There is skin thickening and subcutaneous stranding along the anterior abdominal wall in the area of prior surgery. In the left lower quadrant there appears to be an open wound containing some packing. There is adjacent subcutaneous air. The inflammatory changes extend to the rectus abdominis muscle on the left. No fluid collection is seen. RETROPERITONEUM: There is no lymphadenopathy. There is stranding in the presacral space. BLADDER: No wall thickening or mass. REPRODUCTIVE: Within normal limits. INGUINAL: There is no lymphadenopathy or hernia. MUSCULOSKELETAL: There are degenerative changes of the lumbar spine with pars defects at L5. CONCLUSION: 1. There has been interval surgery with postsurgical changes in the rectum or distal sigmoid colon. S tranding of the fat in the presacral space is likely related to either recent surgery or prior radiat ion therapy. 2. There is an apparent open wound on the anterior abdominal wall in the left lower quadrant which ap pears to contain some packing material. Inflammatory changes extend to the left rectus abdominis musc le. There is subcutaneous air but no fluid collection is seen. 3. Stable 13 mm left hepatic cyst and at least 3 additional subcentimeter low density liver lesions t hat are too small to characterize. Rashel Reza MD on September 02, 2017 at 22:36 Board Certified Radiologist. This report was verified electronically.
== END 2017-09-02 23:07 | disposition home or self-care (01) ==
LOC: PHED 20:31
DX: L73.9 Follicular disorder, unspecified (principal); K76.89 Other specified diseases of liver; M19.90 Unspecified osteoarthritis, unspecified site; I48.91 Unspecified atrial fibrillation; F41.9 Anxiety disorder, unspecified; F32.9 Major depressive disorder, single episode, unspecified; K21.9 Gastro-esophageal reflux disease without esophagitis; I10 Essential (primary) hypertension; G47.30 Sleep apnea, unspecified
CPT/HCPCS: 74176; 80053; 85007; 85025; 85027; 99284

== ENCOUNTER 2017-09-05 13:39 | Emergency (ER) | payer MEDICARE, MEDICAID ==
[~2017-09-05] VITALS: Ht 177.8 cm; Wt 100.8 kg
[~2017-09-05 13:39] MED LIST changes: +BACT800T5 PO
[2017-09-05 13:49] VITALS: BP 126/76; PULSE 82; RESP 18; TEMP 98.1; O2SAT 95
[2017-09-05] MEDS ORDERED: CEPH-460 PO (14:16)
--- NOTE | 2017-09-05 14:16 | PD ---
HPI Chief Complaint: Skin Problem Time Seen by Provider: 13:56 Travel History International Travel<30 days: No Contact w/Intl Traveler<30days: No Traveled to known affect area: No History of Present Illness HPI 67-year-old male complains of infected lesions lower abdomen. Patient status post colon Resection surgery 6 weeks ago. Patient noticed infected lesions on the lower abdomen several days ago. Patient was seen in emergency room 3 days ago and was given prescription for Bactrim DS. Patient took Bactrim for 2 days and started having allergic reaction rash with that. Patient contacted his surgeon and was given prescription for cephalexin. Patient states that he started on the cephalexin since yesterday. Patient requesting wound check today. Patient denies any fever chills. Patient states that he has cramping of the abdomen after surgery and is not new. Patient states that he has burning pain on the infected lesion on the lower abdomen wall. PFSH Past Medical History Hx Anticoagulant Therapy: No Arthritis: Yes Atrial Fibrillation: Yes Autoimmune Disease: No Anxiety: Yes Depression: Yes Cardiovascular Problems: Yes Diabetes: No Diminished Hearing: Yes (RIGHT) Endocrine: No Gastrointestinal Disorders: Yes GERD: Yes Genitourinary: No Headaches: Yes Hiatal Hernia: Yes Hypertension: Yes Immune Disorder: No Implanted Vascular Access Dvce: No Musculoskeletal: Yes Neurologic: No Psychiatric: Yes Reproductive: Yes Respiratory: Yes Immunizations Current: Yes Sleep Apnea: Yes Thyroid Disease: No Past Surgical History Abdominal Surgery: Yes (HERNIA REPAIR, COLON RESECTION 07/22/17) AICD: No Cardiac Surgery: No Endocrine Surgery: No Genitourinary Surgery: No Gynecologic Surgery: No Joint Replacement: No Neurologic Surgery: No Pacemaker: No Thoracic Surgery: No Other Surgery: Yes (WOUND VAC) Social History Alcohol Use: No Tobacco Use: No Substance Use: No Allergies-Medications (Allergen,Severity, Reaction): Coded Allergies: sulfamethoxazole (Verified Allergy, Severe, FACE RED AND HOT, HARD TO BREATH, 09/05/17) trimethoprim (Verified Allergy, Severe, FACE RED AND HOT, HARD TO BREATH, 09/05/17) penicillin G (Unverified Allergy, Unknown, UNKNOWN, 09/05/17) Reported Meds & Prescriptions Reported Meds & Active Scripts Active Omeprazole 40 Mg Cap 40 Mg PO DAILY Reported Keflex (Cephalexin) 500 Mg Cap 500 Mg PO Q6H Metoprolol Succinate ER 24 HR (Metoprolol Succinate) 25 Mg Tab 25 Mg PO DAILY Ativan (Lorazepam) 2 Mg Tab 2 Mg PO HS PRN Prozac (Fluoxetine HCl) 20 Mg Cap 20 Mg PO DAILY Review of Systems General / Constitutional: No: Fever Eyes: No: Visual changes HENT: No: Headaches Cardiovascular: No: Chest Pain or Discomfort Respiratory: No: Shortness of Breath Gastrointestinal: No: Abdominal Pain Genitourinary: No: Dysuria Musculoskeletal: No: Pain Skin: No Rash Neurologic: No: Weakness Psychiatric: No: Depression Endocrine: No: Polydipsia Hematologic/Lymphatic: No: Easy Bruising Physical Exam Narrative GENERAL: Well-nourished, well-developed patient. SKIN: Focused skin assessment warm/dry. HEAD: Normocephalic. EYES: No scleral icterus. No injection or drainage. NECK: Supple, trachea midline. No JVD or lymphadenopathy. CARDIOVASCULAR: Regular rate and rhythm without murmurs, gallops, or rubs. RESPIRATORY: Breath sounds equal bilaterally. No accessory muscle use. GASTROINTESTINAL: Abdomen soft, non-tender, nondistended. Patient has wound dressing in place. Patient has pustule lesions on the lower abdomen wall area. No induration and no discharge. MUSCULOSKELETAL: No cyanosis, or edema. BACK: Nontender without obvious deformity. No CVA tenderness. Data Data Last Documented VS Vital Signs Date Time Temp Pulse Resp B/P (MAP) Pulse Ox O2 Delivery O2 Flow Rate FiO2 09/05/17 14:10 16 09/05/17 13:49 98.1 82 126/76 (93) 95 MDM Medical Decision Making Medical Screen Exam Complete: Yes Emergency Medical Condition: Yes Medical Record Reviewed: Yes Differential Diagnosis Differential diagnosis including folliculitis, carbuncle, cellulitis, abscess. Narrative Course 67-year-old male with infected lesion low abdominal wall. Status post colon resection surgery 6 weeks ago. Patient is on cephalexin. Diagnosis Primary Impression: Cellulitis Qualified Codes: L03.311 - Cellulitis of abdominal wall Patient Instructions: General Instructions Additional Instructions: Continue with cephalexin as directed. Doxycycline as directed. Ibuprofen for pain. Follow-up with personal physician and surgeon. Return if worse. Med/Other Pt SpecificInfo: Prescription(s) given Scripts [Bactroban Oint] No Conflict Check 1 APPLIC TOPICAL BID, #1 Prov: Abdelrahman Bender MD 09/05/17 Doxycycline Hyclate (Doxycycline Hyclate) 100 Mg Cap 100 MG PO BID for Infection, #20 CAP 0 Refills Prov: Abdelrahman Bender MD 09/05/17 Disposition: 01 DISCHARGE HOME Condition: Stable Abdelrahman Bender MD Sep 05, 2017 14:16
[2017-09-05] MEDS ORDERED: DOXY100C PO (14:18)
[2017-09-05] MEDS ORDERED: BACTROBAN OINT TOPICAL (14:18)
== END 2017-09-05 14:57 | disposition home or self-care (01) ==
LOC: PHED 13:39
DX: L03.311 Cellulitis of abdominal wall (principal); M19.90 Unspecified osteoarthritis, unspecified site; I48.91 Unspecified atrial fibrillation; F32.9 Major depressive disorder, single episode, unspecified; I10 Essential (primary) hypertension; Z88.2 Allergy status to sulfonamides; Z88.0 Allergy status to penicillin
CPT/HCPCS: 99283

== ENCOUNTER 2017-09-08 22:10 | Emergency (ER) | payer MEDICARE, MEDICAID ==
[~2017-09-08] VITALS: Ht 177.8 cm; Wt 102.6 kg
[~2017-09-08 22:10] MED LIST changes: -BACT800T5 PO; +BACTROBAN OINT TOPICAL; +CEPH-460 PO; +DOXY100C PO
[2017-09-08 22:15] VITALS: BP 139/81; PULSE 74; RESP 18; TEMP 98.2; O2SAT 97
[2017-09-08] MEDS ORDERED: MUPI2%T TOPICAL (22:34)
[2017-09-08] MEDS ORDERED: CIPR-9 PO (22:34)
--- NOTE | 2017-09-08 22:45 | PD ---
HPI Chief Complaint: Wound/Suture/Staple Re-Check Time Seen by Provider: 22:33 Travel History International Travel<30 days: No Contact w/Intl Traveler<30days: No Traveled to known affect area: No History of Present Illness HPI 67-year-old male presents to the emergency department for refill of his Bactroban ointment prescription which accidentally was stone away by a family member. Patient also states that he has been intolerant of the oral antibiotic prescriptions and have been provided to him as a making him feel jittery. Patient has been on Bactrim, Keflex, and doxycycline and states they all make him feel shaky patient is discontinued these medications. Patient states the only antibiotic he does not have a problem with his azithromycin. Patient's been identified to have multiple inflamed hair follicles with and without pustules with focal induration over the past 2 weeks and has been seen in the emergency department numerous times for same complaint. Patient has not followed up with his managing physician. Patient underwent excision of a colonic mass July [address] Naylor and subsequently had wound dehiscence but surgical wound site has continued to look well there is no drainage and he has had no fever or chills. Patient is not diabetic. PFSH Past Medical History Narrative Medical Colon cancer atrial fibrillation anxiety depression hypertension; partial colectomy with excision of colonic mass; no tobacco use; nursing notes Hx Anticoagulant Therapy: No Arthritis: Yes Atrial Fibrillation: Yes Autoimmune Disease: No Anxiety: Yes Depression: Yes Cancer: Yes (colon ca) Cardiovascular Problems: Yes Diabetes: No Diminished Hearing: Yes (RIGHT) Endocrine: No Gastrointestinal Disorders: Yes GERD: Yes Genitourinary: No Headaches: Yes Hiatal Hernia: Yes Hypertension: Yes Immune Disorder: No Implanted Vascular Access Dvce: No Musculoskeletal: Yes Neurologic: No Psychiatric: Yes Reproductive: Yes Respiratory: Yes Immunizations Current: Yes Sleep Apnea: Yes Thyroid Disease: No Tetanus Vaccination: < 5 Years Influenza Vaccination: No Past Surgical History Abdominal Surgery: Yes (HERNIA REPAIR left side, COLON RESECTION 07/22/17 ) AICD: No Cardiac Surgery: No Endocrine Surgery: No Genitourinary Surgery: No Gynecologic Surgery: No Joint Replacement: No Neurologic Surgery: No Pacemaker: No Thoracic Surgery: No Other Surgery: Yes (WOUND VAC- wound dehis.) Social History Alcohol Use: No Tobacco Use: No Substance Use: No Allergies-Medications (Allergen,Severity, Reaction): Coded Allergies: sulfamethoxazole (Verified Allergy, Severe, FACE RED AND HOT, HARD TO BREATH, 09/08/17) trimethoprim (Verified Allergy, Severe, FACE RED AND HOT, HARD TO BREATH, 09/08/17) clindamycin (Verified Allergy, Intermediate, panic attacks, 09/08/17) penicillin G (Unverified Allergy, Unknown, UNKNOWN, 09/08/17) Reported Meds & Prescriptions Reported Meds & Active Scripts Active Bactroban Topical (Mupirocin) 22 Gm Cream 1 Applic TOPICAL BID Cipro (Ciprofloxacin HCl) 500 Mg Tab 500 Mg PO BID 5 Days Omeprazole 40 Mg Cap 40 Mg PO DAILY Reported Metoprolol Succinate ER 24 HR (Metoprolol Succinate) 25 Mg Tab 25 Mg PO DAILY Ativan (Lorazepam) 2 Mg Tab 2 Mg PO HS PRN Prozac (Fluoxetine HCl) 20 Mg Cap 20 Mg PO DAILY Review of Systems Except as stated in HPI: all other systems reviewed are Neg Physical Exam Narrative GENERAL: Well-developed well-nourished male no acute distress or respiratory distress SKIN: Warm and dry. CARDIOVASCULAR: Regular rate and rhythm without murmurs, gallops, or rubs. RESPIRATORY: Breath sounds equal bilaterally. No accessory muscle use. GASTROINTESTINAL: Abdomen soft, non-tender, nondistended. Attention: pannus 2- 3 small areas of focal induration and hair follicle without drainage. Postoperative site with packing no redness no induration no drainage. Data Data Last Documented VS Vital Signs Date Time Temp Pulse Resp B/P (MAP) Pulse Ox O2 Delivery O2 Flow Rate FiO2 09/08/17 22:15 98.2 74 18 139/81 (100) 97 Orders Orders Ed Discharge Order (09/08/17 22:47) [facility] Medical Decision Making Medical Screen Exam Complete: Yes Emergency Medical Condition: Yes Medical Record Reviewed: Yes Differential Diagnosis Folliculitis carbuncle furuncle cellulitis Narrative Course Patient with the of induration or erythema postsurgical site looks pink and healing nicely no induration or drainage Patient given refill of his Bactroban is stable for outpatient management Diagnosis Primary Impression: Folliculitis Additional Impression: Medication refill Referrals: Primary Care Physician 2 days Patient Instructions: General Instructions Additional Instructions: Take oral antibiotic as prescribed Apply topical antibiotic twice daily to affected sites Monitor temperature daily with thermometer and take as needed acetaminophen/ Tylenol every 4 hours for fever 100.4F or greater Follow-up with your managing physician Return to the emergency department for any concerns or change in condition Clean areas with Dial soap twice daily and may apply sparingly liquid Dial soap to each inflamed follicle Med/Other Pt SpecificInfo: Prescription(s) given Scripts Mupirocin Topical (Bactroban Topical) 22 Gm Cream 1 APPLIC TOPICAL BID for Mgmt Bacterial Infection, #1 TUBE 0 Refills Prov: Pina Grajeda MD 09/08/17 Ciprofloxacin (Cipro) 500 Mg Tab 500 MG PO BID for Infection for 5 Days, #10 TAB 0 Refills Prov: Pina Grajeda MD 09/08/17 Disposition: 01 DISCHARGE HOME Condition: Stable Pina Grajeda MD Sep 08, 2017 22:45
== END 2017-09-08 23:05 | disposition home or self-care (01) ==
LOC: PHEFT 22:10
DX: L73.9 Follicular disorder, unspecified (principal); I10 Essential (primary) hypertension; I48.91 Unspecified atrial fibrillation; F32.9 Major depressive disorder, single episode, unspecified; Z76.0 Encounter for issue of repeat prescription; Z85.038 Personal history of other malignant neoplasm of large intestine; Z88.0 Allergy status to penicillin; Z88.2 Allergy status to sulfonamides; Z79.899 Other long term (current) drug therapy
CPT/HCPCS: 99283